=== PATIENT | female | born 1980 | race Caucasian/White ===

== ENCOUNTER 2016-08-07 20:40 | Emergency (ER) | payer OTHER ==
[2016-08-07 21:01] VITALS: BP 137/94; PULSE 78; BMI 31.7
[2016-08-07 21:10] VITALS: TEMP 98.6
--- NOTE | 2016-08-07 21:35 | PDOC ---
History of Present Illness - General Chief Complaint: Pain, Acute Stated Complaint: BREAST PAIN RIGHT SIDE Time Seen by Provider: 08/07/16 21:07 - History of Present Illness Initial Comments: 08/07/16 21:30 CHIEF COMPLAINT: right breast pain HISTORY OF PRESENT ILLNESS: 35-year-old female with history of fibroids, endometriosis, and ovarian cysts, presents to fast track with pain to right breast. Patient states that she has been having breast tenderness "for about a month" but it worsened yesterday. She denies any fever, chills, nausea, vomiting, diarrhea. She does report having a breast reduction almost twenty years ago. She is not . No recent travel or sick contacts. PAST MEDICAL HISTORY:as per HPI FAMILY HISTORY: Denies SOCIAL HISTORY:Current smoker, 2-3 cigarettes daily. Hx of alcohol use. Denies illicit drug use. SURGICAL HISTORY: breast reduction 1997, hysterectomy 2014, ovarian cystectomy 2015, knee replacement surgery ALLERGIES: No known drug allergies REVIEW OF SYSTEMS General/Constitutional: Denies fever or chills. Gastrointestinal: Denies nausea, vomiting, diarrhea or constipation. Skin and breasts: Pain to right breast. PHYSICAL EXAM General Appearance: Well-appearing, appropriately dressed. No apparent distress. HEENT: EOMI, PERRLA, normal voice. No conjunctival pallor. No photophobia, scleral icterus. Respiratory/Chest: Lungs CTAB. Cardiovascular: RRR. S1, S2. Musculoskeletal/Extremities: Normal inspection. FROM of all extremities, normal capillary refill. Pelvis Stable. No CVA tenderness. No tenderness to extremities, pedal edema, swelling, erythema or deformity. Integumentary: Mild erythema to medial aspect of R breast. No warmth, induration, discharge, or abscess appreciated. Appropriate color, dry, warm. No cyanosis, erythema, jaundice or rash Neurologic: Fully oriented, alert. Appropriate mood/affect. Motor strength 5/ 5. No appreciable EOM palsy, facial droop or sensory deficit. 08/07/16 21:43 Past History - Past Medical History Allergies/Adverse Reactions: Allergies Allergy/AdvReac Type Severity Reaction Status Date / Time aspirin Allergy Mild Hives Verified 08/07/16 20:57 Home Medications: Ambulatory Orders Cyclobenzaprine HCl [Flexeril] 10 mg PO HS 02/06/15 Omeprazole [Prilosec (RX)] 40 mg PO BID 02/06/15 Valacyclovir HCl [Valtrex -] 500 mg PO DAILY 07/11/15 Acetaminophen W/ Codeine #3 [Tylenol # 3 -] 1 tab PO Q4H #50 tablet 07/12/15 Acetaminophen [Tylenol] 650 mg PO TID PRN #30 tablet 08/07/16 Amoxicillin/Potassium Clav [Augmentin 875-125 Tablet] 1 each PO BID #20 tablet 08/07/16 Anemia: No Asthma: No Cancer: No Cardiac Disorders: No CVA: No COPD: No CHF: No Dementia: No Diabetes: No GI Disorders: Yes (ACID REFLUX,HIATAL HERNIA) Disorders: No HTN: No Hypercholesterolemia: No Liver Disease: No Seizures: No Thyroid Disease: No - Surgical History Abdominal Surgery: Yes (MINI TUMMY TUCK) Appendectomy: No Cardiac Surgery: No Cholecystectomy: No Lung Surgery: No Neurologic Surgery: No Orthopedic Surgery: Yes (ARTHROSCOPY R KNEE) - Immunization History Immunization Up to Date: Yes - Psycho/Social/Smoking Cessation Hx Suicidal Ideation: No Smoking History: Current every day smoker Have you smoked in the past 12 months: Yes Number of Cigarettes Smoked Daily: 3 Information on smoking cessation initiated: No 'Breaking Loose' booklet given: 07/12/15 Hx Alcohol Use: Yes Drug/Substance Use Hx: No Substance Use Type: Alcohol Hx Substance Use Treatment: No *Physical Exam - Vital Signs Last Vital Signs Temp Pulse Resp BP Pulse Ox 98.6 F 78 20 137/94 98 08/07/16 20:58 08/07/16 20:58 08/07/16 20:58 08/07/16 20:58 08/07/16 20:58 Medical Decision Making - Medical Decision Making 08/07/16 21:36 35 yo F with hx of fibroids, endometriosis, ovarian cysts, presents to fast track with breast pain x 1 month, worsening since yesterday. No abscess noted to breast. No discharge to nipple. -875 mg Augmentin bid Advised patient to take medication as prescribed and f/u with obstetrician gynecologist with the next 3-5 days. Advised patient of signs and symptoms for return to ER. Patient verbalized understanding and agrees to plan. *DC/Admit/Observation/Transfer Diagnosis at time of Disposition: Mastitis - Discharge Dispostion Admit: No - Prescriptions Prescriptions: Amoxicillin/Potassium Clav [Augmentin 875-125 Tablet] 1 each PO BID #20 tablet Acetaminophen [Tylenol] 650 mg PO TID PRN #30 tablet PRN Reason: Pain - Referrals Referrals: Ramesh Thomas MD [Primary Care Provider] - Linda Keene DO [Staff Physician] - - Patient Instructions Printed Discharge Instructions: DI for Mastitis Additional Instructions: Please take medications as prescribed. As discussed, please follow up with Dr. Keene within the next 3-5 days. If you experience any fever, nausea, vomiting , diarrhea, or any new or worsening symptoms, please return to the ER.
== END 2016-08-07 21:47 | disposition home or self-care (01) ==
LOC: JERFT 20:40
DX: N61.0 Mastitis without abscess (principal); K21.9 Gastro-esophageal reflux disease without esophagitis; D21.9 Benign neoplasm of connective and other soft tissue, unspecified; Z96.659 Presence of unspecified artificial knee joint; Z72.0 Tobacco use
CPT/HCPCS: 99281-25

== ENCOUNTER 2016-08-31 00:17 | Inpatient (IN) | payer OTHER ==
[2016-08-31 00:42] VITALS: BMI 29.1
[2016-08-31] MEDS ORDERED: HYDROmorphone HCL CARPU-JECT 1 MG/1 ML DISP.SYRIN IVPB ONE ×2 (00:58→01:38)
--- NOTE | 2016-08-31 00:58 | PDOC ---
History of Present Illness - History of Present Illness Initial Comments: 08/31/16 01:01 The patient is a 35 year old female with a past medical hx of fibroids, endometriosis, and ovarian cysts s/p ovarian cystectomy and hysterectomy who presents to the ED complaining of lower abdominal pain for the past two hours. The patient describes her pain as constant, sharp, and stabbing. She relates this pain the time in the past when she had an ovarian cyst rupture but notes this pain is even more severe. She reports one episode of vomiting, lightheadedness, and chills. The patient denies any chest pain, SOB, fever, diarrhea. Surgical hx: Breast reduction 1997, hysterectomy 2014, ovarian cystectomy 2016, knee replacement surgery Allergies: Aspirin <Candie Marks - Last Filed: 08/31/16 01:43> <Anabel Ibarra - Last Filed: 08/31/16 04:47> - General History Source: Patient Exam Limitations: No Limitations <Edna Hendrickson - Last Filed: 09/03/16 07:49> - General Chief Complaint: Pain, Acute Stated Complaint: ABDOMINAL PAIN Time Seen by Provider: 08/31/16 00:35 Past History <Candie Marks - Last Filed: 08/31/16 01:43> <Anabel Ibarra - Last Filed: 08/31/16 04:47> - Past Medical History Anemia: No Asthma: No Cancer: No Cardiac Disorders: No CVA: No COPD: No CHF: No Dementia: No Diabetes: No GI Disorders: Yes (ACID REFLUX,HIATAL HERNIA) Disorders: No HTN: No Hypercholesterolemia: No Liver Disease: No Seizures: No Thyroid Disease: No - Surgical History Abdominal Surgery: Yes (MINI TUMMY TUCK) Appendectomy: No Cardiac Surgery: No Cholecystectomy: No Lung Surgery: No Neurologic Surgery: No Orthopedic Surgery: Yes (ARTHROSCOPY R KNEE) - Immunization History Immunization Up to Date: Yes - Psycho/Social/Smoking Cessation Hx Suicidal Ideation: No Smoking History: Never smoked Have you smoked in the past 12 months: No Number of Cigarettes Smoked Daily: 3 Information on smoking cessation initiated: No 'Breaking Loose' booklet given: 07/12/15 Hx Alcohol Use: No Drug/Substance Use Hx: No Substance Use Type: Alcohol Hx Substance Use Treatment: No <Edna Hendrickson - Last Filed: 09/03/16 07:49> - Past Medical History Allergies/Adverse Reactions: Allergies Allergy/AdvReac Type Severity Reaction Status Date / Time aspirin Allergy Mild Hives Verified 08/31/16 00:41 Home Medications: Ambulatory Orders Cyclobenzaprine HCl [Flexeril] 10 mg PO HS 02/06/15 Omeprazole [Prilosec (RX)] 40 mg PO BID 02/06/15 Amoxicillin/Potassium Clav [Augmentin 875-125 Tablet] 1 each PO BID #20 tablet 08/07/16 Hydromorphone [Dilaudid -] 2 - 4 mg PO Q6H #42 tablet MDD 8 09/01/16 Review of Systems - Review of Systems Able to Perform ROS?: Yes Comments:: 08/31/16 01:02 GENERAL/CONSTITUTIONAL: +Chills. No: fever, weakness, loss of appetite. HEAD, EYES, EARS, NOSE AND THROAT: No: change in vision, ear pain, discharge, sore throat, throat swelling. CARDIOVASCULAR: No: chest pain, lightheadedness, palpitations, syncope RESPIRATORY: No: cough, shortness of breath, wheezing, hemoptysis, stridor. GASTROINTESTINAL: +Vomiting, abdominal pain. No: diarrhea, rectal bleeding, constipation. GENITOURINARY: No: dysuria, hematuria, frequency, urgency, flank pain. MUSCULOSKELETAL: No: back pain, neck pain, joint pain, muscle swelling or pain SKIN: No: lesions, pallor, rash or easy bruising. NEUROLOGIC: +Lightheadedness. No: headache, vertigo, paresthesias, weakness ENDOCRINE: No: unexplained weight gain or loss HEMATOLOGIC/LYMPHATIC: No: anemia, easy bleeding, swelling nodes <Candie Marks - Last Filed: 08/31/16 01:43> *Physical Exam - Vital Signs Last Vital Signs Temp Pulse Resp BP Pulse Ox 98.6 F 86 20 127/85 97 08/31/16 00:41 08/31/16 00:41 08/31/16 00:41 08/31/16 00:41 08/31/16 00:41 - Physical Exam Comments: 08/31/16 01:02 GENERAL: +Appears uncomfortable, tearful. HEAD: Normal with no signs of trauma. EYES: PERRLA, EOMI, sclera anicteric, conjunctiva clear. ENT: Ears normal, nares patent, oropharynx clear without exudates. Moist mucous membranes. NECK: Normal range of motion, supple without lymphadenopathy, JVD, or masses. LUNGS: Breath sounds equal, clear to auscultation bilaterally. No wheezes, and no crackles. HEART:Regular rate and rhythm, normal S1 and S2 without murmur, rub or gallop. ABDOMEN: +Abdominal distention, diffuse lower abdominal tenderness to palpation , voluntary guarding. Soft, normoactive bowel sounds. No rebound. EXTREMITIES: Normal range of motion, no edema. No clubbing or cyanosis. No erythema, or tenderness. NEUROLOGICAL: Cranial nerves II through XII grossly intact. Normal speech. No focal neurological deficits. MUSCULOSKELETAL: Back nontender to palpation, no CVA tenderness SKIN: Warm, Dry, normal turgor, no rashes or lesions noted. <Candie Marks - Last Filed: 08/31/16 01:43> - Vital Signs Last Vital Signs Temp Pulse Resp BP Pulse Ox 98.6 F 86 20 127/85 97 08/31/16 00:41 08/31/16 00:41 08/31/16 00:41 08/31/16 00:41 08/31/16 00:41 <Anabel Ibarra - Last Filed: 08/31/16 04:47> - Vital Signs Last Vital Signs Temp Pulse Resp BP Pulse Ox 98.6 F 86 20 127/85 97 08/31/16 00:41 08/31/16 00:41 08/31/16 00:41 08/31/16 00:41 08/31/16 00:41 <Edna Hendrickson - Last Filed: 09/03/16 07:49> ED Treatment Course - LABORATORY CBC & Chemistry Diagram: 08/31/16 01:20 08/31/16 01:20 <Candie Marks - Last Filed: 08/31/16 01:43> - LABORATORY CBC & Chemistry Diagram: 08/31/16 01:20 08/31/16 01:20 - ADDITIONAL ORDERS Additional order review: Laboratory Results 08/31/16 08/31/16 08/31/16 01:45 01:20 01:20 INR 1.03 Sodium 137 Potassium 4.2 Chloride 99 Carbon Dioxide 27 Anion Gap 11 BUN 9 D Creatinine 0.8 Creat Clearance w eGFR > 60 Random Glucose 124 H D Calcium 9.6 Total Bilirubin 0.3 AST 17 ALT 24 Alkaline Phosphatase 66 Total Protein 6.7 Albumin 4.0 Serum , Qual Negative 08/31/16 01:20 RBC 4.29 MCV 90.0 MCHC 34.1 RDW 13.7 MPV 9.3 Neutrophils % 80.4 D Lymphocytes % 13.8 D Monocytes % 4.9 Eosinophils % 0.4 D Basophils % 0.5 - Medications Given in the ED: ED Medications Discontinued Medications Generic Name Dose Route Start Last Admin Trade Name Carolyn PRN Reason Stop Dose Admin Hydromorphone HCl 0.5 mg 08/31/16 00:58 08/31/16 01:32 Dilaudid Injection - IVPB 08/31/16 00:59 0.5 mg NOW ONE Administration Hydromorphone HCl 0.5 mg 08/31/16 01:38 08/31/16 02:55 Dilaudid Injection - IVPB 08/31/16 01:39 0.5 mg NOW ONE Administration Ondansetron HCl 4 mg 08/31/16 01:38 08/31/16 02:55 Zofran Injection IVPUSH 08/31/16 01:39 4 mg ONCE ONE Administration <Anabel Ibarra - Last Filed: 08/31/16 04:47> - LABORATORY CBC & Chemistry Diagram: 09/01/16 06:50 08/31/16 01:20 <Edna Hendrickson - Last Filed: 09/03/16 07:49> Medical Decision Making - Medical Decision Making 08/31/16 02:59 Patient Name: Lori Dalton This is a preliminary report by imaging information technology specialist Exam: Endovaginal sonogram Images: 20 Clinical indication: Rule out torsion. Rule out ruptured cyst. Findings: There is a small to moderate amount of free fluid in the pelvis. The patient is status post supracervical hysterectomy. Nabothian cysts are noted in the cervical remnant. The pelvic free fluid appears complex on multiple images. The ovaries are not visualized. Impression : Status post supracervical hysterectomy. Complex multiseptated process noted in the cervical remnant possibly a nabothian cyst or hematoma. Complex fluid noted in the pelvis possibly hemorrhagic. THIS DOCUMENT HAS BEEN ELECTRONICALLY SIGNED 08/31/16 04:06 Patient Name: Lori Dalton This is a preliminary report by imaging information technology specialist Exam: Contrast-enhanced CT abdomen and pelvis Images: 480 Clinical indication : Severe abdominal pain. Findings: Subsegmental dependent atelectatic changes are noted in the lung bases. Complex perihepatic and perisplenic ascites is noted to be traced into the pelvis. A hypodensity in the right lobe liver measures approximately 2.5 cm in diameter and demonstrates peripheral nodular enhancement, likely a hemangioma. The adrenal glands are unremarkable. Subcentimeter hypodensities are noted in the right kidney. The kidneys otherwise enhance symmetrically. There is no evidence of urinary tract obstruction. The gastrointestinal tract does not appear obstructed. No thickened or dilated bowel is seen. The appendix has a normal appearance. No mesenteric infiltration. There is a heterogeneous irregular soft tissue attenuation process in the left pelvis that could represent a abnormal uterus. This process however appears to represent a hemorrhage and measures up to 12 x 9 x 6.5 cm The urinary bladder is unremarkable. No abdominal or pelvic adenopathy is seen. No lytic or blastic destructive osseous lesions are seen. Impression: Moderate amount of complex ascites seen throughout the abdomen and pelvis likely hemorrhagic. Soft tissue attenuation process in the left pelvis as above appears to represent hemorrhage and clot. Query hysterectomy? THIS DOCUMENT HAS BEEN ELECTRONICALLY SIGNED 08/31/16 04:26 I will speak to Dr. Aceves regarding the patient's pelvic hemorrhage. 08/31/16 04:[address] Keene who knows the patient. SHe is aware that there is blood in the pt's abdomen and pelvis. I read her the study results. SHe understands that the patinet has a WBC elevated count and that we have only one CBC. Repeat CBC will be sent to monitor or dropping HCT 08/31/16 04:47 <Anabel Ibarra - Last Filed: 08/31/16 04:47> - Medical Decision Making 08/31/16 00:58 35 yo F presenting to the ER with a complaint of severe abdominal pain Symptoms began suddenly Pt has a history of endometriosis (s/p hysterectomy), history of ovarian cysts ( s/p cyst removal x 2) Pt reports her pain is severe, rated >10/10, described as sharp/severe, pain initially in the lower abdomen and radiates to the right side of the abdomen No fevers or chills Pt feels nauseous No vomiting On examination: Severe lower abdominal pain and tenderness (+) voluntary guarding (+)) rebound DD: Torsion, ruptured ovarian cyst, appendicitis, SBO, colitis Will do labs, will do Ultrasound (concern for ruptured ovarian cyst) Pt is pending Labs, Imaging Bedside US performed : FAST negative US ordered CT abd and pelvis ordered Coags and Type & Screen ordered Pt signed out to Dr Ibarra at 2am, labs sent awaiting all imaging studies I, Dr. Edna Hendrickson, attest that this document has been prepared under my direction and personally reviewed by me in its entirety. I further attest, that it accurately reflects all work, treatment, procedures and medical decision -making performed by me. <Edna Hendrickson - Last Filed: 09/03/16 07:49> *DC/Admit/Observation/Transfer - Attestations Scribe Attestion: 08/31/16 01:01 Documentation prepared by Cadnie Marks, acting as front office medical assistant for Edna Hendrickson MD/DO. <Candie Marks - Last Filed: 08/31/16 01:43> - Discharge Dispostion Admit: Yes <Anabel Ibarra - Last Filed: 08/31/16 04:47> <Edna Hendrickson - Last Filed: 09/03/16 07:49> Diagnosis at time of Disposition: Intraabdominal hemorrhage - Discharge Dispostion Disposition: HOME Condition at time of disposition: Good - Prescriptions - Referrals
[2016-08-31] MEDS ORDERED: HYDROmorphone HCL CARPU-JECT 1 MG/1 ML DISP.SYRIN ONE ×2 (01:23→02:45)
[2016-08-31 01:37] LABS: BASOPHIL 0.5 % (0-2.0); EOSINOPHIL 0.4 % (0-4.5); MCH 30.7 pg (25.7-33.7); MCHC 34.1 g/dl (32.0-36.0); MEAN PLT VOLUME 9.3 fl (7.5-11.1); NEUTROPHILS 80.4 % (42.8-82.8); PLATELET COUNT 230 K/MM3 (134-434); RDW 13.7 % (11.6-15.6); WHITE BLOOD COUNT 17.1 K/mm3 (4.0-10.0)
[2016-08-31] MEDS ORDERED: ONDANSETRON 4 MG/2 ML VIAL IVPUSH ONE (01:38)
[2016-08-31 02:11] LABS: ANION GAP 11 (8-16); BILIRUBIN,TOTAL 0.3 mg/dL (0.2-1.0); CALCIUM 9.6 mg/dL (8.5-10.1); CO2 27 mmol/L (21-32); CREATININE 0.8 mg/dL (0.55-1.02); GLUCOSE,RANDOM 124 mg/dL (74-106); SGOT/AST 17 U/L (15-37); SGPT/ALT 24 U/L (12-78); TOT PROT 6.7 g/dl (6.4-8.2)
[2016-08-31 02:12] LABS: INR 1.03 (0.82-1.09); PROTHROMBIN TIME (PATIENT) 11.3 SEC (9.98-11.88)
[2016-08-31 02:12] LABS: ALK PHOS 66 U/L (45-117)
[2016-08-31] MEDS ORDERED: ONDANSETRON 4 MG/2 ML VIAL ONE (02:52)
[2016-08-31] MEDS ORDERED: ACETAMINOPHEN 1000 MG/100 ML VIAL (NON FORMULARY) IVPB ONE (03:04)
[2016-08-31] MEDS ORDERED: ACETAMINOPHEN INJECTION 100 ML IVPB ONE ×2 (03:54→12:38)
[2016-08-31 04:53] LABS: BASOPHIL 0.5 % (0-2.0); EOSINOPHIL 0.2 % (0-4.5); MCH 30.1 pg (25.7-33.7); MCHC 33.6 g/dl (32.0-36.0); MEAN CELL VOLUME 89.5 fl (80-96); MEAN PLT VOLUME 9.1 fl (7.5-11.1); NEUTROPHILS 77.8 % (42.8-82.8); PLATELET COUNT 240 K/MM3 (134-434); RDW 13.6 % (11.6-15.6); WHITE BLOOD COUNT 14.2 K/mm3 (4.0-10.0)
[2016-08-31] MEDS ORDERED: morphine CARPU-JECT 2 MG/1 ML DISP.SYRIN IVPUSH ONE (04:55)
[2016-08-31] MEDS ORDERED: SODIUM CHLORIDE 1,000 ML IV SCH (05:00)
[2016-08-31] MEDS ORDERED: morphine CARPU-JECT 2 MG/1 ML DISP.SYRIN ONE (05:09)
[2016-08-31] MEDS: HYDROmorphone HCL CARPU-JECT 1 MG/1 ML DISP.SYRIN IVPB PRN ×2 (05:42→10:12)
[2016-08-31] MEDS ORDERED: ACETAMINOPHEN 1000 MG/100 ML VIAL (NON FORMULARY) IVPB SCH ×3 (09:00→21:15)
[2016-08-31 09:15] LABS: PH,URINE 8.5 (5.0-8.0); URINE APPEARANCE CLEAR; URINE BILIRUBIN NEGATIVE (NEGATIVE); URINE BLOOD NEGATIVE (NEGATIVE); URINE COLOR LT. YELLOW; URINE GLUCOSE (UA) NEGATIVE (NEGATIVE); URINE KETONE NEGATIVE (NEGATIVE); URINE LEUK ESTERASE NEGATIVE (NEGATIVE); URINE NITRITE NEGATIVE (NEGATIVE); URINE PROTEIN NEGATIVE (NEGATIVE); URINE UROBILINOGEN 0.2 E.U/dl E.U./dl (0.2-1.0)
[2016-08-31 09:40] LABS: BASOPHIL 0.3 % (0-2.0); EOSINOPHIL 0.3 % (0-4.5); MCH 30.8 pg (25.7-33.7); MCHC 34.5 g/dl (32.0-36.0); MEAN CELL VOLUME 89.5 fl (80-96); MEAN PLT VOLUME 9.1 fl (7.5-11.1); NEUTROPHILS 73.3 % (42.8-82.8); PLATELET COUNT 222 K/MM3 (134-434); RDW 13.3 % (11.6-15.6); WHITE BLOOD COUNT 13.7 K/mm3 (4.0-10.0)
--- NOTE | 2016-08-31 11:16 | HP ---
Admitting History and Physical - Admission History of Present Illness: Patient is a 35 y/o female who presented to the ER last night with complaints of abdominal pain, on episode of nause and some light headedness. After evaluation was found to have hemoperitoneum. The patient has a history of ruptured ovarian cysts and states the pain she had last night feels similar, but that it is much more severe. The patient has a history of a total laparoscopic hysterectomy and bilateral salpingectomy, as well as a history of an ovarian cystectomy. The patient also has a history of an abdominoplasty and c section as well as back and knee surgery. The patient feels somewhat light headed and now complains of pelvic pressure and the urge to "push" as if she is in labor. History Source: Patient, Medical Record Limitations to Obtaining History: No Limitations - Past Medical History Cardiovascular: No: Deep Vein Thrombosis, [place] Pulmonary: Yes: Asthma Gastrointestinal: Yes: GERD. No: Cancer, Pancreatitis Reproductive: Yes: Other (history of TLH and ovarian cysts). No: Ectopic , PID, Postmenopausal ...LMP: 02/02/15 ...LMP Comment: Hx of Total Laparoscopic Hysterectomy ...: No Heme/Onc: No: Anemia Infectious Disease: No: HIV, MRSA Psych: No: Bipolar Rheumatology: Yes: Fibromyalgia Endocrine: No: Diabetes Mellitus, Hyperthyroidism - Past Surgical History Past Surgical History: Yes: Breast Biopsy, , Hysterectomy, Tubal Ligation (salpingectomy) Additional Past Surgical History: total laparoscopic hysterectomy with bilateral salpingectomy, abdominoplasty, laparoscopic ovarian cystectomy - Smoking History Smoking history: Current every day smoker Have you smoked in the past 12 months: Yes Aproximately how many cigarettes per day: 3 - Alcohol/Substance Use Hx Alcohol Use: Yes (2-3 drinks weekly) History of Substance Use: reports: Prescription (is prescribed tylenol with codeine for back pain) - Social History Usual Living Arrangement: Yes: With Significant Other ADL: Independent History of Recent Travel: No Home Medications - Allergies Allergies/Adverse Reactions: Allergies Allergy/AdvReac Type Severity Reaction Status Date / Time aspirin Allergy Mild Hives Verified 08/31/16 00:41 - Home Medications Home Medications: Ambulatory Orders Cyclobenzaprine HCl [Flexeril] 10 mg PO HS 02/06/15 Omeprazole [Prilosec (RX)] 40 mg PO BID 02/06/15 Amoxicillin/Potassium Clav [Augmentin 875-125 Tablet] 1 each PO BID #20 tablet 08/07/16 Review of Systems - Review of Systems Constitutional: reports: No Symptoms Eyes: reports: No Symptoms HENT: reports: No Symptoms Neck: reports: No Symptoms Cardiovascular: reports: No Symptoms Respiratory: reports: No Symptoms Gastrointestinal: reports: Abdominal Pain, Bloating, Vomiting (one episode of vomiting yesterday). denies: Constipation, Diarrhea Genitourinary: reports: Pain, Other (pelvic pressure). denies: Hematuria, Menses, Vaginal Bleeding Breasts: reports: No Symptoms Reported, Other (recent breast biopsy on 08/28 - right breast) Neurological: reports: Syncope (near syncope). denies: Change in Speech, Confusion, Dizziness Hematology/Lymphatic: reports: No Symptoms Psychiatric: reports: No Symptoms Physical Examination Vital Signs: Vital Signs Temperature 98.4 F 08/31/16 08:47 Pulse Rate 79 08/31/16 08:47 Respiratory Rate 18 08/31/16 08:47 Blood Pressure 147/82 08/31/16 08:47 O2 Sat by Pulse Oximetry (%) 100 08/31/16 05:41 Constitutional: Yes: Well Nourished, Anxious, Moderate Distress. No: Pallor Neck: Yes: Supple Cardiovascular: Yes: Regular Rate and Rhythm Gastrointestinal: Yes: Soft, Distention, Hypoactive Bowel Sounds, Tenderness. No: Vomiting Breast(s): Yes: WNL Musculoskeletal: Yes: WNL Extremities: Yes: WNL Neurological: Yes: Alert, Oriented Psychiatric: Yes: Alert, Oriented Labs: CBC, BMP 08/31/16 09:00 Problem List - Problems (1) Hemoperitoneum Code(s): K66.1 - HEMOPERITONEUM (2) Intraabdominal hemorrhage Code(s): R58 - HEMORRHAGE, NOT ELSEWHERE CLASSIFIED Assessment/Plan Patient is a 35 yo female with abdominal pain and intrapelvic/intra abdominal bleeding likely 2/2 ruptured ovarian cyst. Afebrile. VSS - not tachycardic or hypotensive. Hgb 13.2 at 1am, at 9am was 12.1, overall stable but slowly dropping. Discussed plan of care with patient and family. Plan for diagnostic laparoscopy, evacuation of hemoperitoneum, likely right oophorectomy. The patient was explained the plan of care - risks/benefits/alternatives discussed. Consent for procedure was signed with nurse present to witness consent. Pt has been NPO. Anesthesia and nursing team aware.
[2016-08-31] MEDS ORDERED: ROCURONIUM BROMIDE 50 MG/5 ML VIAL ONE (12:22)
[2016-08-31] MEDS ORDERED: MIDAZOLAM HCL 2 MG/2 ML SINGLE DOSE VIAL ONE (12:23)
[2016-08-31] MEDS ORDERED: LIDOCAINE HCL 2% (20ML MULTI-DOSE VIAL) NR ONE (12:25)
[2016-08-31] MEDS ORDERED: SCOPOLAMINE HYDROBROMIDE 1 PATCH PATCH.TD72 ONE (12:25)
[2016-08-31] MEDS ORDERED: ALBUTEROL SO4 6.7 GM HFA INHALER IH PRN ×2 (12:29→15:20)
[2016-08-31] MEDS ORDERED: ceFAZolin SODIUM 1 GM VIAL ONE (12:35)
[2016-08-31] MEDS ORDERED: PANTOPRAZOLE 40 MG TABLET (FP) PO SCH (12:45)
[2016-08-31] MEDS ORDERED: ceFAZolin SODIUM 1 GM VIAL IVPB ONE (12:51)
[2016-08-31] MEDS ORDERED: HYDROmorphone HCL/PF 1 MG/ML VIAL (FOR PYXIS CHARGING ONLY) ONE (12:57)
[2016-08-31] MEDS ORDERED: NEOSTIGMINE METHYLSULFATE 0.5 MG/ML - 10 ML MDV ONE (13:12)
[2016-08-31] MEDS ORDERED: GLYCOPYRROLATE 0.2 MG/1 ML VIAL ONE (13:13)
[2016-08-31] MEDS ORDERED: SUCCINYLCHOLINE CHLORIDE 200 MG/10 ML VIAL ONE (13:32)
[2016-08-31] MEDS ORDERED: BUPIVACAINE HCL/PF 0.25% (2.5MG/ML) 10 ML VIAL STI ONE (13:47)
[2016-08-31] MEDS ORDERED: IBUPROFEN 800 MG/8 ML IJ IVPB PRN ×2 (14:25→15:20)
--- NOTE | 2016-08-31 14:25 | OP ---
Operative Note - Note: Operative Date: 08/31/16 Pre-Operative Diagnosis: pelvic pain, hemoperitoneum, suspected rupture ovarian cyst Operation: diagnostic laparoscopy, evacuation of hemoperitoneum, right oophorectomy Findings: Large ruptured right sided ovarian hemorrhagic cyst, right ovarian torsion ( twice), hemoperitoneum (approx 500cc). Normal left ovary. Absence of uterus and bilateral fallopian tubes (had prior TLH and b/l salpingectomy in 2014). Omental adhesions to anterior abdominal wall. Otherwise normal intra abdominal anatomy. Post-Operative Diagnosis: Same as Pre-op (right ovarian hemorrhagic cyst, right ovarian torsion, hemoperitoneum) Surgeon: Linda Keene Mica Machine Operator: Tenisha Montez Anesthesiologist/MANAGER MARKET RESEARCH: Jaden Perla Anesthesia: General Specimens Removed: right ovary, reminent of right fallopian tube Estimated Blood Loss (mls): 600 Operative Report Dictated: Yes
[2016-08-31] MEDS ORDERED: ONDANSETRON 4 MG/2 ML VIAL IVPUSH PRN ×2 (14:26→15:20)
[2016-08-31] MEDS ORDERED: HYDROmorphone HCL 2 MG TABLET PO PRN ×2 (14:26→22:00)
[2016-08-31] MEDS ORDERED: PROMETHAZINE HCL 25 MG/1 ML VIAL IVPUSH PRN (14:26)
[2016-08-31] MEDS ORDERED: LACTATED RINGERS SOLUTION 1,000 ML IV SCH ×2 (14:30→15:20)
[2016-08-31] MEDS ORDERED: ACETAMINOPHEN 325 MG TABLET (FP) PO PRN ×2 (14:39→15:20)
[2016-08-31] MEDS ORDERED: HYDROmorphone HCL CARPU-JECT 1 MG/1 ML DISP.SYRIN IVPB PRN (15:20)
[2016-08-31 15:22] LABS: BASOPHIL 0.2 % (0-2.0); EOSINOPHIL 0.1 % (0-4.5); MCH 30.3 pg (25.7-33.7); MCHC 33.7 g/dl (32.0-36.0); MEAN CELL VOLUME 89.7 fl (80-96); MEAN PLT VOLUME 9.1 fl (7.5-11.1); NEUTROPHILS 89.8 % (42.8-82.8); PLATELET COUNT 172 K/MM3 (134-434); RDW 13.3 % (11.6-15.6); WHITE BLOOD COUNT 13.4 K/mm3 (4.0-10.0)
[2016-08-31] MEDS: HYDROmorphone HCL 2 MG TABLET PO PRN (17:53)
[2016-08-31 20:07] LABS: BASOPHIL 0.3 % (0-2.0); MCH 30.4 pg (25.7-33.7); MCHC 33.4 g/dl (32.0-36.0); MEAN CELL VOLUME 90.9 fl (80-96); MEAN PLT VOLUME 9.6 fl (7.5-11.1); NEUTROPHILS 88.4 % (42.8-82.8); PLATELET COUNT 192 K/MM3 (134-434); RDW 13.3 % (11.6-15.6); WHITE BLOOD COUNT 10.3 K/mm3 (4.0-10.0)
[2016-08-31] MEDS: PANTOPRAZOLE 40 MG TABLET (FP) PO SCH (21:21)
--- NOTE | 2016-08-31 22:42 | OP ---
DATE OF OPERATION: 08/31/2016 PREOPERATIVE DIAGNOSIS: Suspected ruptured ovarian cyst, hemoperitoneum. POSTOPERATIVE DIAGNOSIS: Confirmed ruptured hemorrhagic ovarian cyst, hemoperitoneum. Right ovarian torsion. PROCEDURE: Laparoscopic right oophorectomy and evacuation of hemoperitoneum. FINDINGS: Included large right ovarian hemorrhagic cyst and ovarian torsion as well as a large amount of hemoperitoneum. SURGEON: Linda James M.D. ESCORT CAR DRIVER: Tenisha Montez M.D. ANESTHESIA: General. ANESTHESIOLOGIST: Jaden Perla M.D. COUNTS: Sponge, needle, and instrument count correct at the end of the case. SPECIMEN: Included right ovary sent to pathology for permanent evaluation. DISPOSITION: Stable to PACU. BRIEF HISTORY AND PROCEDURE: Patient is a 35-year-old female who was admitted to the hospital on the morning of August 31, 2016, with complaints of abdominal pain. Upon imaging studies, the patient was noted to have intrapelvic hemorrhage and there was concern for right ruptured ovarian cyst. While CBC were trended and patient's hemoglobin and hematocrit were stable, the patient was in significant pain, at which point it was decided to take the patient back to the operating room for diagnostic laparoscopy. The patient consented for the procedure. She was then taken back to the operating room where she was given general anesthesia by Dr. Jaden Perla without difficulty. She was placed in the dorsal lithotomy position. A dejesus catheter was placed under sterile conditions. She was then prepped and draped in the usual sterile fashion. A hard timeout was performed. A 5-mm skin incision was created infraumbilically, and Veress needle was placed intraabdominally. The abdomen was insufflated with CO2 gas. Next a 5-mm trocar was placed in the umbilical port and the camera was inserted. Upon entry into the abdomen, a large amount of intrapelvic blood and clot was noted, approximately 500 mL was appreciated. At this time also omental adhesions to the anterior abdominal wall were appreciated. Two bilateral lower quadrants ports were then inserted, 5 mm in the left lower quadrant and an 11 mm in the right lower quadrant; this was done under direct visualization. First the hemoperitoneum was attempted to be evacuated with suction at which point a large right ovary with a hemorrhagic ruptured cyst was noted, and the ovary appeared to be twisted on the infundibulopelvic ligament approximately 2 times. Next, the omental adhesions were dissected off the Ligasure device from the anterior abdominal wall. This was done without difficulty. The ovary was then de-torsed and elevated away from the pelvic sidewall. After identifying the ureter transperitoneally, the infundibulopelvic ligament was isolated, ligated, and cut with a Ligasure device on several passes until the ovary was detached from the pelvic side wall. Next an Endocatch bag was placed in the 11 mm trocar site and the ovary was removed from the abdominal cavity. Suction was then completed to evacuate the remaining hemoperitoneum. Inspection of the remainder of the abdomen revealed no other intraabdominal pathology or any other sources of bleeding at this time. Next the 11-mm trocar site was closed under direct visualization using the Ernesto Brandon device using 0 Vicryl suture. Attention was then turned again to the pelvis, where bilateral ureters were noting to be peristalsing normally and with a normal caliber, and the surgical site was noted to be hemostatic. Trocars were removed under direct visualization. Abdomen was desufflated. Trocars were all removed, and then skin was reapproximated using 4-0 Biosyn suture and then Dermabond. Marcaine was injected subdermally and band-aids were applied as needed. The patient was awoken from anesthesia, Dejesus catheter was removed, and she was recovering in stable condition in PACU after the surgery. Sponge needle and instrument counts were reported as correct at the end of the case. LINDA JAMES DO CH/[id number] MTDD
[2016-09-01] MEDS: HYDROmorphone HCL 2 MG TABLET PO PRN ×2 (01:57→07:25)
--- NOTE | 2016-09-01 07:05 | PN ---
Progress Note (short form) - Note Progress Note: 35 yo status post Laparoscopic Oophorectomy, seen and evaluated. She c/o incision pain. PE : Chest : CTA, no rales ABD : Soft, no distention, + incision pain Ext : FROM, no calf tenderness A/P : Post op Lap Oophorectomy Stable Analgesia PRN pain D/C home
[2016-09-01 08:01] LABS: BASOPHIL 0.2 % (0-2.0); EOSINOPHIL 0.3 % (0-4.5); MCH 30.5 pg (25.7-33.7); MCHC 33.1 g/dl (32.0-36.0); MEAN CELL VOLUME 91.9 fl (80-96); MEAN PLT VOLUME 9.1 fl (7.5-11.1); NEUTROPHILS 70.7 % (42.8-82.8); PLATELET COUNT 196 K/MM3 (134-434); RDW 13.7 % (11.6-15.6); WHITE BLOOD COUNT 11.4 K/mm3 (4.0-10.0)
--- NOTE | 2016-09-01 08:04 | PN ---
Progress Note (short form) - Note Progress Note: Post op day#1.S/P Laproscopic R salpingectomy for an ectopic under GA uneventful.Patient stable.No any anesthesia related problem.Patient DC from the anesthesia care.
--- NOTE | 2016-09-01 09:20 | DS ---
Physical Examination Vital Signs: Vital Signs Temperature 98.5 F 09/01/16 02:00 Pulse Rate 69 09/01/16 02:00 Respiratory Rate 18 09/01/16 02:00 Blood Pressure 110/57 09/01/16 02:00 O2 Sat by Pulse Oximetry (%) 97 08/31/16 15:30 Constitutional: Yes: Well Nourished, No Distress, Calm Eyes: Yes: Conjunctiva Clear, EOM Intact HENT: Yes: Atraumatic, Normocephalic Neck: Yes: Supple, Trachea Midline Cardiovascular: Yes: Regular Rate and Rhythm Respiratory: Yes: Regular, CTA Bilaterally Gastrointestinal: Yes: Normal Bowel Sounds, Soft, Tenderness (at incision site) . 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 Upon imaging studies, it appeared that the patient had a ruptured hemorrhagic ovarian cyst. The patient was admitted for pain control, and although her hemoglobin was trended and stable, the patient was in significant pain at which point it was decided to undergo a diagnostic laparoscopy to evaluate the reason for intrapelvic bleeding. Upon entry into the abdomen, the patient was noted to have approximately 500cc of hemoperitoneum and a large right ovarian hemorrhagic cyst and ovarian torsion. The patient then underwent an uncomplicated right oophorectomy and evacuation of hemoperitoneum. The patient was kept overnight and discharged home in stable condition on post op day 1. Condition: Guarded - Instructions Referrals: Bryce Pearl [Primary Care Provider] - - Home Medications Comprehensive Discharge Medication List: Ambulatory Orders Cyclobenzaprine HCl [Flexeril] 10 mg PO HS 02/06/15 Omeprazole [Prilosec (RX)] 40 mg PO BID 02/06/15 Amoxicillin/Potassium Clav [Augmentin 875-125 Tablet] 1 each PO BID #20 tablet 08/07/16
[2016-09-01] MEDS: PANTOPRAZOLE 40 MG TABLET (FP) PO SCH (10:02)
[2016-09-01 10:58] VITALS: BP 123/73; PULSE 63; TEMP 98.1
--- NOTE | 2016-09-02 14:37 | PATH ---
Surgical Pathology Report Patient Name: VENITA BURKETT Med. Rec. 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 Specimen(s) Received RT OVARY& REMNANT RT. FALLOPIAN TUBE Clinical History Hemoperitoneum Final Diagnosis RIGHT OVARY, OOPHERECTOMY: BENIGN OVARIAN TISSUE WITH EXTENSIVE VASCULAR CONGESTION AND HEMORRHAGE CONSISTENT WITH TORSION. SEROSAL FIBROVASCULAR ADHESIONS ARE PRESENT. Comment: No definite fallopian tube tissue is identified in the current specimen. See prior specimen [id number]. Electronically Signed Ridge Chacon M.D. Gross Description Received in formalin labeled "right ovary and remnant right fallopian tube," is a 6.5 x 4.3 x 2.5 cm garcia brown, hemorrhagic portion of partially encapsulated tissue. Sectioning reveals red-brown blood clot as well as foci of possible soft tissue. No definite fallopian tube is identified. Process Steward sections are submitted in 7 cassettes. DL/09/01/2016 saudi/09/01/2016
== END 2016-09-01 10:50 | disposition home or self-care (01) | DRG 513 ==
LOC: JER 00:17 → JERBED 04:33 → J3W 05:45
PROVIDERS: ADMIT Obstetrics & Gynecology; ATTEND Obstetrics & Gynecology
PROC: 0UB04ZZ Excision of Right Ovary, Percutaneous Endoscopic Approach (ICD-10-PCS; principal; 2016-08-31 12:00)
DX: N83.201 Unspecified ovarian cyst, right side (principal); K66.1 Hemoperitoneum; F17.210 Nicotine dependence, cigarettes, uncomplicated
CPT/HCPCS: 36415; 74177-TC; 76830-TC; 80053; 81003; 84703; 85025; 85384; 85610; 85730; 86850; 86900; 86901; 87086; 87186; 88305-TC; 94010; 94760; 99283-25; 99284-25; Q9967

== ENCOUNTER 2016-09-03 15:27 | Emergency (ER) | payer OTHER ==
--- NOTE | 2016-09-03 16:15 | PDOC ---
History of Present Illness - General History Source: Patient - History of Present Illness Timing/Duration: other Severity: severe Associated Symptoms: denies: chest pain, fever/chills, nausea/vomiting, shortness of breath, syncope <Josefina Quintanilla - Last Filed: 09/03/16 18:11> <Jan Hernandez - Last Filed: 09/03/16 21:23> - General Chief Complaint: Lightheaded Stated Complaint: DIZZINESS Time Seen by Provider: 09/03/16 16:06 Past History - Past Medical History Anemia: No Asthma: No Cancer: No Cardiac Disorders: No CVA: No COPD: No CHF: No Dementia: No Diabetes: No GI Disorders: Yes (ACID REFLUX,HIATAL HERNIA) Disorders: No HTN: No Hypercholesterolemia: No Liver Disease: No Seizures: No Thyroid Disease: No - Surgical History Abdominal Surgery: Yes (MINI TUMMY TUCK) Appendectomy: No Cardiac Surgery: No Cholecystectomy: No Lung Surgery: No Neurologic Surgery: No Orthopedic Surgery: Yes (ARTHROSCOPY R KNEE) - Immunization History Immunization Up to Date: Yes - Psycho/Social/Smoking Cessation Hx Suicidal Ideation: No Smoking History: Never smoked Have you smoked in the past 12 months: No Number of Cigarettes Smoked Daily: 3 Cigars Per Day: 0 'Breaking Loose' booklet given: 07/12/15 Hx Alcohol Use: No Drug/Substance Use Hx: No Substance Use Type: Alcohol Hx Substance Use Treatment: No <Josefina Quintanilla - Last Filed: 09/03/16 18:11> <Jan Hernandez - Last Filed: 09/03/16 21:23> - Past Medical History Allergies/Adverse Reactions: Allergies Allergy/AdvReac Type Severity Reaction Status Date / Time aspirin Allergy Mild Hives Verified 08/31/16 00:41 Home Medications: Ambulatory Orders Omeprazole [Prilosec (RX)] 40 mg PO BID 02/06/15 Amoxicillin/Potassium Clav [Augmentin 875-125 Tablet] 1 each PO BID #20 tablet 08/07/16 Hydromorphone [Dilaudid -] 2 - 4 mg PO Q6H #42 tablet MDD 8 09/01/16 Diclofenac Sodium 75 mg PO DAILY 09/03/16 Review of Systems - Review of Systems Constitutional: No: Chills, Fever Respiratory: No: Shortness of Breath Cardiac (ROS): No: Chest Pain, Palpitations ABD/GI: Yes: Abdominal cramping. No: Nausea, Vomiting : No: Dysuria, Flank Pain, Hematuria <TaiwaneseJosefina - Last Filed: 09/03/16 18:11> *Physical Exam - Physical Exam General Appearance: Yes: Appropriately Dressed, Mild Distress HEENT: positive: Normal Voice Neck: positive: Supple Respiratory/Chest: negative: Respiratory Distress Gastrointestinal/Abdominal: positive: Normal Bowel Sounds, Tender (diffusely to lower abd, well healing incisions, +hematoma to RLQ), Soft. negative: Distended , Guarding, Rebound Musculoskeletal: negative: CVA Tenderness Integumentary: positive: Dry, Warm Neurologic: positive: Fully Oriented, Alert, Normal Mood/Affect <TaiwaneseJosefina - Last Filed: 09/03/16 18:11> - Vital Signs Last Vital Signs Temp Pulse Resp BP Pulse Ox 98.7 F 89 18 118/78 99 09/03/16 19:42 09/03/16 19:42 09/03/16 19:42 09/03/16 19:42 09/03/16 19:42 <Jan Hernandez - Last Filed: 09/03/16 21:23> ED Treatment Course - LABORATORY CBC & Chemistry Diagram: 09/03/16 17:00 09/03/16 17:00 <TaiwaneseJosefina - Last Filed: 09/03/16 18:11> - LABORATORY CBC & Chemistry Diagram: 09/03/16 17:00 09/03/16 17:00 - ADDITIONAL ORDERS Additional order review: Laboratory Results 09/03/16 09/03/16 09/03/16 19:25 17:00 17:00 INR 0.90 Sodium Potassium Chloride Carbon Dioxide Anion Gap BUN Creatinine Creat Clearance w eGFR Random Glucose Calcium Total Bilirubin AST ALT Alkaline Phosphatase Total Protein Albumin Urine Color Straw Urine Appearance Clear Urine pH 6.0 D Ur Specific [place] 1.009 Urine Protein Negative Urine Glucose (UA) Negative Urine Ketones Negative Urine Blood Negative Urine Nitrite Negative Urine Bilirubin Negative Urine Urobilinogen Negative Ur Leukocyte Esterase Negative Blood Type O POSITIVE Antibody Screen Negative 09/03/16 17:00 INR Sodium 139 Potassium 4.1 Chloride 101 Carbon Dioxide 27 Anion Gap 11 BUN 12 D Creatinine 0.7 Creat Clearance w eGFR > 60 Random Glucose 99 D Calcium 9.1 Total Bilirubin 0.3 AST 28 D ALT 34 D Alkaline Phosphatase 60 Total Protein 6.3 L Albumin 3.4 Urine Color Urine Appearance Urine pH Ur Specific [place] Urine Protein Urine Glucose (UA) Urine Ketones Urine Blood Urine Nitrite Urine Bilirubin Urine Urobilinogen Ur Leukocyte Esterase Blood Type Antibody Screen 09/03/16 17:00 RBC 3.06 L MCV 91.8 MCHC 32.7 RDW 13.5 MPV 9.0 Neutrophils % 60.4 Lymphocytes % 28.6 D Monocytes % 7.3 Eosinophils % 2.9 D Basophils % 0.8 D - Medications Given in the ED: ED Medications Discontinued Medications Generic Name Dose Route Start Last Admin Trade Name Freq PRN Reason Stop Dose Admin Morphine Sulfate 4 mg 09/03/16 16:25 09/03/16 16:55 Morphine Injection - IVPUSH 09/03/16 16:26 4 mg ONCE ONE Administration <Jan Hernandez D - Last Filed: 09/03/16 21:23> Medical Decision Making - Medical Decision Making 09/03/16 16:11 35-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 Taking dilaudid w/ no relief. Denies CP/sob/palpitations. No vag bleed, n/v/f/c. See exam Worsening pelvic pain s/p recent evacuation/R oophorectomy for torsion and ruptured hemorrhagic cyst (had ~500cc or hemoperitoneum) Stable in ED w/ sig ttp to lower abd diffusely w/ no sig distension and ell healing surgical incisions Unable to luis pelvic exam at this time -pain control -labs -CT r/o recurrent hemorrhage/post-op complications -d/w NUTRITION TEACHER 09/03/16 16:38 Case d/w Dr James who agrees w/ rpt CT today. Would like to be contacted w/ results 09/03/16 17:12 09/03/16 18:11 <TaiwaneseJosefina - Last Filed: 09/03/16 18:11> - Medical Decision Making 09/03/16 21:04 Discussed results with patient. Patient states she feels fine, but believes she may have been doing to much activity and not rest s/p recent surgery. Call was placed to Dr. James (NUTRITION TEACHER/OB). 09/03/16 21:20 Patient approached nursing station stating that she spoke with Dr. James who stated, "If your Ct-Scan has no internal bleeding, you can follow up in office tomorrow." Patient requesting to be d/c'd to home at this time. <Jan Hernandez D - Last Filed: 09/03/16 21:23> *DC/Admit/Observation/Transfer <TaiwaneseJosefina - Last Filed: 09/03/16 18:11> - Discharge Dispostion Admit: No <Jan Hernandez - Last Filed: 09/03/16 21:23> Diagnosis at time of Disposition: Lightheadedness Abdominal pain Qualifiers: Abdominal location: generalized Qualified Code(s): R10.84 - Generalized abdominal pain - Discharge Dispostion Disposition: HOME Condition at time of disposition: Improved - Patient Instructions Additional Instructions: FOLLOW UP WITH DR. JAMES IN OFFICE TOMORROW DISCUSSED. Print Language: URDU
[2016-09-03] MEDS ORDERED: morphine CARPU-JECT 4 MG/1 ML DISP.SYRIN IVPUSH ONE (16:25)
[2016-09-03] MEDS ORDERED: morphine CARPU-JECT 4 MG/1 ML DISP.SYRIN ONE (16:46)
[2016-09-03 17:31] LABS: BASOPHIL 0.8 % (0-2.0); EOSINOPHIL 2.9 % (0-4.5); MCHC 32.7 g/dl (32.0-36.0); MEAN CELL VOLUME 91.8 fl (80-96); NEUTROPHILS 60.4 % (42.8-82.8); PLATELET COUNT 227 K/MM3 (134-434); RDW 13.5 % (11.6-15.6)
[2016-09-03 17:47] LABS: ALBUMIN 3.4 g/dl (3.4-5.0); ANION GAP 11 (8-16); BILIRUBIN,TOTAL 0.3 mg/dL (0.2-1.0); CALCIUM 9.1 mg/dL (8.5-10.1); CO2 27 mmol/L (21-32); COCKROFT - GAULT 0; CREATININE 0.7 mg/dL (0.55-1.02); GLUCOSE,RANDOM 99 mg/dL (74-106); SGOT/AST 28 U/L (15-37); SGPT/ALT 34 U/L (12-78); TOT PROT 6.3 g/dl (6.4-8.2)
[2016-09-03 17:48] LABS: ALK PHOS 60 U/L (45-117)
[2016-09-03 17:51] LABS: INR 0.9 (0.82-1.09); PROTHROMBIN TIME (PATIENT) 9.9 SEC (9.98-11.88)
[2016-09-03 18:00] VITALS: BMI 31.6
[2016-09-03 19:35] LABS: URINE APPEARANCE CLEAR; URINE BILIRUBIN NEGATIVE (NEGATIVE); URINE BLOOD NEGATIVE (NEGATIVE); URINE COLOR STRAW; URINE GLUCOSE (UA) NEGATIVE (NEGATIVE); URINE KETONE NEGATIVE (NEGATIVE); URINE LEUK ESTERASE NEGATIVE (NEGATIVE); URINE NITRITE NEGATIVE (NEGATIVE); URINE PROTEIN NEGATIVE (NEGATIVE); URINE UROBILINOGEN NEGATIVE E.U./dl (0.2-1.0)
[2016-09-03 19:43] VITALS: BP 118/78; PULSE 89; TEMP 98.7
--- NOTE | 2016-09-04 13:27 | EKG ---
Test Reason : Blood Pressure : / mmHG Vent. Rate : 075 BPM Atrial Rate : 075 BPM P-R Int : 166 ms QRS Dur : 094 ms QT Int : 390 ms P-R-T Axes : 058 066 053 degrees QTc Int : 435 ms NORMAL SINUS RHYTHM NORMAL ECG WHEN COMPARED WITH ECG OF 06-FEB-2015 08:47, NO SIGNIFICANT CHANGE WAS FOUND Confirmed by SILVA PARNELL MD ([id number]) on 09/04/2016 1:27:14 PM Referred By: Confirmed By:SILVA PARNELL MD
== END 2016-09-03 21:26 | disposition home or self-care (01) ==
LOC: JER 15:27
PROC: 3E033NZ Introduction of Analgesics, Hypnotics, Sedatives into Peripheral Vein, Percutaneous Approach (ICD-10-PCS; principal; 2016-09-03)
DX: R42 Dizziness and giddiness (principal); R10.84 Generalized abdominal pain; Z98.890 Other specified postprocedural states
CPT/HCPCS: 36415; 74177-TC; 80053; 81003; 85025; 85610; 86850; 86900; 86901; 93005; 93010; 99283-25; Q9967

== ENCOUNTER 2016-09-08 20:02 | Emergency (ER) | payer OTHER ==
[2016-09-08 21:00] VITALS: BP 131/92; PULSE 70; TEMP 98.3; BMI 29.1
[2016-09-08] MEDS ORDERED: SODIUM CHLORIDE 500 ML IV STA (21:17)
--- NOTE | 2016-09-08 21:24 | PDOC ---
History of Present Illness - General Chief Complaint: Pain Stated Complaint: ABDOMINAL PAIN Time Seen by Provider: 09/08/16 20:37 History Source: Patient - History of Present Illness Initial Comments: 09/08/16 21:16 35 year old female s/p oopherectomy on 08/31 c/o chest pain, incision site swelling and pain which developed while having an argument with at home prior to arrival. patient denies bleeding/ PUS at the site. slight tenderness to touch. . denies fever, NVD, abdominal pain, urinary symptoms. Surgeon Dr. Keene. Past History - Past Medical History Allergies/Adverse Reactions: Allergies Allergy/AdvReac Type Severity Reaction Status Date / Time aspirin Allergy Mild Hives Verified 08/31/16 00:41 Home Medications: Ambulatory Orders Amoxicillin/Potassium Clav [Augmentin 875-125 Tablet] 1 each PO BID #20 tablet 08/07/16 Hydromorphone [Dilaudid -] 2 - 4 mg PO Q6H #42 tablet MDD 8 09/01/16 Cephalexin [Keflex] 500 mg PO Q12H #14 capsule 09/13/16 Anemia: No Asthma: No Cancer: No Cardiac Disorders: No CVA: No COPD: No CHF: No Dementia: No Diabetes: No GI Disorders: Yes (ACID REFLUX,HIATAL HERNIA) Disorders: No HTN: No Hypercholesterolemia: No Liver Disease: No Psychiatric Problems: Yes (PTSD, anxiety) Seizures: No Thyroid Disease: No - Surgical History Abdominal Surgery: Yes (MINI TUMMY TUCK) Appendectomy: No Cardiac Surgery: No Cholecystectomy: No Lung Surgery: No Neurologic Surgery: No Orthopedic Surgery: Yes (ARTHROSCOPY R KNEE) - Immunization History Immunization Up to Date: Yes - Psycho/Social/Smoking Cessation Hx Anxiety: No Suicidal Ideation: No Smoking History: Unknown if ever smoked Have you smoked in the past 12 months: No Number of Cigarettes Smoked Daily: 3 Cigars Per Day: 0 'Breaking Loose' booklet given: 07/12/15 Hx Alcohol Use: No Drug/Substance Use Hx: No Substance Use Type: Alcohol Hx Substance Use Treatment: No Review of Systems - Review of Systems Able to Perform ROS?: Yes Is the patient limited [place] Citizen proficient: No Respiratory: Yes: Shortness of Breath Cardiac (ROS): Yes: Chest Pain *Physical Exam - Vital Signs Last Vital Signs Temp Pulse Resp BP Pulse Ox 98.3 F 70 17 131/92 100 09/08/16 20:15 09/08/16 20:15 09/08/16 20:15 09/08/16 20:15 09/08/16 20:15 - Physical Exam General Appearance: Yes: Other (arguing with , appears angry) Respiratory/Chest: positive: Lungs Clear, Normal Breath Sounds. negative: Chest Tender, Respiratory Distress, Accessory Muscle Use, Labored Respiration, Rapid RR, Decreased Breath Sounds, Paradoxal Breathing, Crackles, Rales, Rhonchi , Stridor, Wheezing, Hyperresonant, Dullness, Plerual Rub, Other Cardiovascular: positive: Regular Rhythm, Regular Rate Gastrointestinal/Abdominal: positive: Normal Bowel Sounds, Tender (Right incision site clean dry and intact, small bulge noted at incision site. ), Soft Extremity: positive: Normal Capillary Refill, Normal Inspection, Normal Range of Motion Integumentary: positive: Normal Color, Dry, Warm Neurologic: positive: Fully Oriented, Alert, Normal Mood/Affect ED Treatment Course - LABORATORY CBC & Chemistry Diagram: 09/08/16 21:34 09/08/16 21:34 - RADIOLOGY Radiograph Interpretation: CTA chest: no PE CTAP: post op changes. 2.0x 2.6 cm fluid filled structure right anterior pelvic wall possibly representing hematoma or seroma along lap track. (patient left before these results were read) Medical Decision Making - Medical Decision Making A: post op pain and swelling at the site. chest pain r/o PE P: CBC: wnl CMP: wnl D-Dimer: elevated. will CTA chest. UA: negative. patient is arguing with . I recommended that patient stay for imaging results. Patient left prior to studies were resulted. Patient is leaving against medical advise. patient said she will follow up with her surgeon. patient did not sign document prior to walking out of ER. *DC/Admit/Observation/Transfer Diagnosis at time of Disposition: Abdominal pain - Discharge Dispostion Disposition: AGAINST MEDICAL ADVICE - Referrals Referrals: Bryce Pearl [Primary Care Provider] -
[2016-09-08 21:50] LABS: EOSINOPHIL 2.7 % (0-4.5); MCH 29.5 pg (25.7-33.7); MCHC 32.1 g/dl (32.0-36.0); MEAN CELL VOLUME 91.9 fl (80-96); MEAN PLT VOLUME 9.1 fl (7.5-11.1); NEUTROPHILS 58.9 % (42.8-82.8); PLATELET COUNT 312 K/MM3 (134-434); RDW 13.7 % (11.6-15.6); WHITE BLOOD COUNT 8.9 K/mm3 (4.0-10.0)
[2016-09-08 22:05] LABS: INR 1.05 (0.82-1.09); PROTHROMBIN TIME (PATIENT) 11.6 SEC (9.98-11.88)
[2016-09-08 22:14] LABS: URINE APPEARANCE CLEAR; URINE BILIRUBIN NEGATIVE (NEGATIVE); URINE BLOOD NEGATIVE (NEGATIVE); URINE COLOR STRAW; URINE GLUCOSE (UA) NEGATIVE (NEGATIVE); URINE KETONE NEGATIVE (NEGATIVE); URINE LEUK ESTERASE NEGATIVE (NEGATIVE); URINE NITRITE NEGATIVE (NEGATIVE); URINE PROTEIN NEGATIVE (NEGATIVE); URINE UROBILINOGEN NEGATIVE E.U./dl (0.2-1.0)
[2016-09-08] MEDS ORDERED: morphine CARPU-JECT 2 MG/1 ML DISP.SYRIN IVPUSH ONE (22:18)
[2016-09-08] MEDS ORDERED: morphine CARPU-JECT 2 MG/1 ML DISP.SYRIN ONE (22:23)
[2016-09-08 22:52] LABS: ALBUMIN 3.6 g/dl (3.4-5.0); ANION GAP 9 (8-16); BILIRUBIN,TOTAL 0.3 mg/dL (0.2-1.0); CALCIUM 8.8 mg/dL (8.5-10.1); CO2 26 mmol/L (21-32); COCKROFT - GAULT 139.2215; CREATININE 0.7 mg/dL (0.55-1.02); GLUCOSE,RANDOM 91 mg/dL (74-106); MAGNESIUM 2.1 mg/dL (1.8-2.4); SGOT/AST 21 U/L (15-37); SGPT/ALT 31 U/L (12-78); TOT PROT 6.5 g/dl (6.4-8.2)
[2016-09-08 22:55] LABS: ALK PHOS 66 U/L (45-117); TROPONIN I < 0.02 ng/ml (0.00-0.05)
--- NOTE | 2016-09-09 22:56 | EKG ---
Test Reason : Blood Pressure : / mmHG Vent. Rate : 071 BPM Atrial Rate : 071 BPM P-R Int : 166 ms QRS Dur : 092 ms QT Int : 400 ms P-R-T Axes : 039 070 054 degrees QTc Int : 434 ms NORMAL SINUS RHYTHM NORMAL ECG WHEN COMPARED WITH ECG OF 03-SEP-2016 17:32, NO SIGNIFICANT CHANGE WAS FOUND Confirmed by ABDULAZIZ GONZALEZ MD ([id number]) on 09/09/2016 10:55:55 PM Referred By: Confirmed By:ABDULAZIZ GONZALEZ MD
== END 2016-09-09 00:24 | disposition left against medical advice (07) ==
LOC: JER 20:02
DX: Z53.21 Procedure and treatment not carried out due to patient leaving prior to being seen by health care provider (principal)
CPT/HCPCS: 36415; 71275-TC; 74177-TC; 80053; 81003; 82550; 82553; 83735; 84484; 84703; 85025; 85379; 85610; 93005; 93010; 99283-25

== ENCOUNTER 2016-09-12 19:52 | Inpatient (IN) | payer OTHER ==
--- NOTE | 2016-09-12 20:31 | PDOC ---
History of Present Illness - General History Source: Patient, Family, Old Records Exam Limitations: No Limitations - History of Present Illness Initial Comments: 09/12/16 21:53 The patient is a 35 year old female, with a significant past medical history of Acid Reflux, hiatal hernia, PTSD and fibromyalgia, who presents to the emergency department with right sided abdominal pain and hematoma for the past 2 weeks. She reports that she had an oopherectomy on 08/31/2016 and since has had pain and hematoma develop. She also reports that she has noticed a fever of 101 F during this time frame. The patient notes that she has an appointment with wound care next week and shes not able to wait that long due to the pain. She notes that she has seen Dr. Keene multiple times for this issue without any resolvement of the matter, as well as having multiple visits to the ED. The patient denies chest pain, shortness of breath, headache and dizziness. Denies fever, chills, nausea, vomit, diarrhea and constipation. Denies dysuria, frequency, urgency and hematuria. Allergies: None Past surgical history: ARTHROSCOPY R KNEE, tummy tuck Social history: Alcohol use. Cigarette use (3 daily). No drug use reported <Marbin Pedraza - Last Filed: 09/12/16 21:53> <aJn Guadarrama - Last Filed: 09/12/16 22:31> - General Chief Complaint: Pain Stated Complaint: INFECTION Past History <Marbin Pedraza - Last Filed: 09/12/16 21:53> - Past Medical History Anemia: No Asthma: No Cancer: No Cardiac Disorders: No CVA: No COPD: No CHF: No Dementia: No Diabetes: No GI Disorders: Yes (ACID REFLUX,HIATAL HERNIA) Disorders: No HTN: No Hypercholesterolemia: No Liver Disease: No Psychiatric Problems: Yes (PTSD) Seizures: No Thyroid Disease: No Other medical history: fibromyalgia - Surgical History Abdominal Surgery: Yes (MINI TUMMY TUCK) Appendectomy: No Cardiac Surgery: No Cholecystectomy: No Lung Surgery: No Neurologic Surgery: No Orthopedic Surgery: Yes (ARTHROSCOPY R KNEE) - Immunization History Immunization Up to Date: Yes - Psycho/Social/Smoking Cessation Hx Anxiety: No Suicidal Ideation: No Smoking History: Unknown if ever smoked Have you smoked in the past 12 months: No Number of Cigarettes Smoked Daily: 3 Cigars Per Day: 0 Information on smoking cessation initiated: No 'Breaking Loose' booklet given: 07/12/15 Hx Alcohol Use: No Drug/Substance Use Hx: No Substance Use Type: Alcohol Hx Substance Use Treatment: No <ChiaraJan - Last Filed: 09/12/16 22:31> - Past Medical History Allergies/Adverse Reactions: Allergies Allergy/AdvReac Type Severity Reaction Status Date / Time aspirin Allergy Mild Hives Verified 09/12/16 20:21 Home Medications: Ambulatory Orders Amoxicillin/Potassium Clav [Augmentin 875-125 Tablet] 1 each PO BID #20 tablet 08/07/16 Hydromorphone [Dilaudid -] 2 - 4 mg PO Q6H #42 tablet MDD 8 09/01/16 Review of Systems - Review of Systems Able to Perform ROS?: Yes Comments:: 09/12/16 21:53 CONSTITUTIONAL: No fever, no chills, no fatigue EYES: No visual changes ENT: No ear pain, no sore throat CARDIOVASCULAR: No chest pain, no palpitations RESPIRATORY: No cough, no SOB GI: +Right sided abdominal pain. No nausea, no vomiting, no constipation, no diarrhea GENITOURINARY: No dysuria, no frequency, no hematuria MUSKULOSKELETAL: No backpain, no joint pain, no myalgias SKIN: +Ecchymosis and hematoma on the right lower adominal quadrant. No rash NEURO: No headache <Marbin Pedraza - Last Filed: 09/12/16 21:53> *Physical Exam - Vital Signs Last Vital Signs Temp Pulse Resp BP Pulse Ox 99.1 F 85 18 125/93 100 09/12/16 20:21 09/12/16 20:21 09/12/16 20:21 09/12/16 20:21 09/12/16 20:21 - Physical Exam Comments: 09/12/16 21:53 CONSTITUTIONAL: Well-appearing; well-nourished; in no apparent distress HEAD: Normocephalic; atraumatic EYES: PERRL; EOM intact ENMT: External appears normal; normal oropharynx NECK: Supple; non-tender; no cervical lymphadenopathy CARD: Normal S1, S2; no murmurs, rubs, or gallops RESP: Normal chest excursion with respiration; breath sounds clear and equal bilaterally; no wheezes, rhonchi, or rales EXT: Normal ROM in all four extremities; non-tender to palpation; distal pulses intact NEURO: No focal neurological deficiencies. <Marbin Pedraza - Last Filed: 09/12/16 21:53> - Vital Signs Last Vital Signs Temp Pulse Resp BP Pulse Ox 99.1 F 85 18 125/93 100 09/12/16 20:21 09/12/16 20:21 09/12/16 20:21 09/12/16 20:21 09/12/16 20:21 - Physical Exam Comments: PE cont.: ABD: + Extensive subcutaneous hematoma involving the right lower quadrant, right lower pelvic area and right hip, with a 3 cm area of induration to the right lower quadrant area of the anterior abdominal wall which is exquisitely tender to palpation and mildly fluctuant; is no guarding or rebound; bowel sounds are present in all 4 quadrants. SKIN: See above; <Jan Guadarrama - Last Filed: 09/12/16 22:31> ED Treatment Course - LABORATORY CBC & Chemistry Diagram: 09/12/16 21:28 09/12/16 21:40 - ADDITIONAL ORDERS Additional order review: Laboratory Results 09/12/16 21:00 Urine Color Ltyellow Urine Appearance Clear Urine pH 5.0 D Ur Specific Emma Urine Protein Negative Urine Glucose (UA) Negative Urine Ketones Negative Urine Blood Negative Urine Nitrite Negative Urine Bilirubin Negative Urine Urobilinogen Negative Ur Leukocyte Esterase Negative Urine HCG, Qual Negative 09/12/16 21:28 RBC 3.32 L MCV 89.8 MCHC 32.9 RDW 13.8 MPV 8.8 Neutrophils % 57.8 Lymphocytes % 31.4 Monocytes % 7.4 Eosinophils % 2.6 Basophils % 0.8 <Marbin Pedraza - Last Filed: 09/12/16 21:53> - LABORATORY CBC & Chemistry Diagram: 09/12/16 21:28 09/12/16 21:40 <Jan Guadarrama - Last Filed: 09/12/16 22:31> Medical Decision Making - Medical Decision Making 09/12/16 21:54 Dr. Linda Keene was called regarding the patient at 9:21pm. Dr. Keene was consulted regarding the patient at 9:22pm [phone] Dr. Keene arrived to see the patient at the bedside at 9:55pm and is attempting an incision to drain the hematoma. <Marbin Pedraza - Last Filed: 09/12/16 21:53> - Medical Decision Making 09/12/16 22:29 Patient is a 35-year-old female who presents with signs and symptoms of acute infected postop hematoma to the right lower quadrant of the anterior abdominal wall. In the ER, patient is awake and alert, nontoxic appearing, with a 3 cm indurated and somewhat fluctuant mass. CBC is within normal limit. Dr. Keene of [facility] is at bedside performing an IND of the lesion. Patient has received IV Unasyn and will be placed in observation <Jan Guadarrama - Last Filed: 09/12/16 22:31> *DC/Admit/Observation/Transfer - Attestations Scribe Attestion: 09/12/16 21:54 Documentation prepared by Marbin Pedraza, acting as medical reviewer for Jan Guadarrama MD <Marbin Pedraza - Last Filed: 09/12/16 21:53> - Discharge Dispostion Admit: Yes - Attestations Physician Attestion: 09/12/16 21:58 The documentation was prepared by the scribe under my direct supervision. I have reviewed the documentation which correctly represents the findings, medical decision-making and critical action taken by me. <Jan Guadarrama - Last Filed: 09/12/16 22:31> Diagnosis at time of Disposition: Hematoma complicating a procedure - Discharge Dispostion Condition at time of disposition: Fair - Referrals Referrals: Bryce Pearl [Primary Care Provider] -
[2016-09-12 21:16] LABS: URINE APPEARANCE CLEAR; URINE BILIRUBIN NEGATIVE (NEGATIVE); URINE BLOOD NEGATIVE (NEGATIVE); URINE COLOR LTYELLOW; URINE GLUCOSE (UA) NEGATIVE (NEGATIVE); URINE KETONE NEGATIVE (NEGATIVE); URINE LEUK ESTERASE NEGATIVE (NEGATIVE); URINE NITRITE NEGATIVE (NEGATIVE); URINE PROTEIN NEGATIVE (NEGATIVE); URINE UROBILINOGEN NEGATIVE E.U./dl (0.2-1.0)
[2016-09-12 21:35] LABS: BASOPHIL 0.8 % (0-2.0); EOSINOPHIL 2.6 % (0-4.5); MCH 29.5 pg (25.7-33.7); MCHC 32.9 g/dl (32.0-36.0); MEAN CELL VOLUME 89.8 fl (80-96); MEAN PLT VOLUME 8.8 fl (7.5-11.1); NEUTROPHILS 57.8 % (42.8-82.8); PLATELET COUNT 296 K/MM3 (134-434); RDW 13.8 % (11.6-15.6); WHITE BLOOD COUNT 9.4 K/mm3 (4.0-10.0)
[2016-09-12] MEDS ORDERED: AMPICILLIN NA/SULBACTAM NA 3 GM in SODIUM CHLORIDE 100 ML IVPB ONE (21:35)
[2016-09-12] MEDS ORDERED: LIDOCAINE 1%/EPI 1:100000 (50 ML MULTI DOSE VIAL) ONE (21:53)
[2016-09-12] MEDS ORDERED: HYDROmorphone HCL CARPU-JECT 2 MG/1 ML DISP.SYRIN ONE (21:54)
[2016-09-12] MEDS ORDERED: HYDROmorphone HCL CARPU-JECT 2 MG/1 ML DISP.SYRIN IVPB ONE (21:56)
[2016-09-12 22:26] LABS: INR 0.96 (0.82-1.09); PROTHROMBIN TIME (PATIENT) 10.5 SEC (9.98-11.88)
[2016-09-12 22:35] LABS: ALBUMIN 3.5 g/dl (3.4-5.0); ALK PHOS 69 U/L (45-117); ANION GAP 9 (8-16); BILIRUBIN,TOTAL 0.2 mg/dL (0.2-1.0); CALCIUM 8.9 mg/dL (8.5-10.1); CO2 25 mmol/L (21-32); COCKROFT - GAULT 139.2215; CREATININE 0.7 mg/dL (0.55-1.02); GLUCOSE,RANDOM 94 mg/dL (74-106); SGOT/AST 16 U/L (15-37); SGPT/ALT 27 U/L (12-78); TOT PROT 6.4 g/dl (6.4-8.2)
--- NOTE | 2016-09-12 23:02 | HP ---
Admitting History and Physical - Admission Chief Complaint: abdominal/incisional pain History of Present Illness: 35 y/o female with past medical history of PTSD, fibromyalgia, GERD with hiatal hernia and ovarian cysts presented to the ED tonight with complaints of continued abdominal pain at laparoscopic incisional site - pt is 12 days s/p laparoscopic oophorectomy for an ovarian torsion and ruptured ovarian cyst on . The patient has been diagnosed with a wound hematoma which the patient has been managing conservatively at home with hot/cold compresses and pain medication. The ecchymosis has improved greatly over the past 2 weeks but the subcutaneous hematoma has not decreased in size. The patient was seen in the office this morning and plan was made for follow up with wound care center next week. The patient, since that time, states she noted a fever of 101 at home and chills which is what prompted her to come to the ED. Pt has no other complaints today. History Source: Patient, Medical Record Limitations to Obtaining History: No Limitations - Past Medical History Cardiovascular: No: HTN, [place] Pulmonary: Yes: Asthma Gastrointestinal: Yes: GERD. No: Cancer, Pancreatitis Reproductive: No: Ectopic , Endometriosis ...LMP: 02/02/15 ...: No Heme/Onc: No: Hypercoaguable State, Thrombocytopenia Infectious Disease: No: HIV, MRSA, STD's Psych: Yes: Other (PTSD) Musculoskeletal: Yes: Other (history of lower back lipomas - surgically removed history of right knee surgery) Rheumatology: Yes: Fibromyalgia Endocrine: No: Diabetes Mellitus, Hypothyroidism - Past Surgical History Past Surgical History: Yes: Breast Biopsy, , Cystectomy (ovarian), Hysterectomy, Tubal Ligation (salpingectomy) Additional Past Surgical History: laparoscopic right oophorectomy on 08/31/16 due to ovarian torsion and rupture hemorrhagic ovarian cyst - Smoking History Smoking history: Current every day smoker Have you smoked in the past 12 months: No Aproximately how many cigarettes per day: 3 - Alcohol/Substance Use Hx Alcohol Use: No History of Substance Use: reports: Prescription (is prescribed tylenol with codeine for back pain) - Social History Usual Living Arrangement: Yes: With Spouse ADL: Independent History of Recent Travel: No Home Medications - Allergies Allergies/Adverse Reactions: Allergies Allergy/AdvReac Type Severity Reaction Status Date / Time aspirin Allergy Mild Hives Verified 09/12/16 20:21 - Home Medications Home Medications: Ambulatory Orders Amoxicillin/Potassium Clav [Augmentin 875-125 Tablet] 1 each PO BID #20 tablet 08/07/16 Hydromorphone [Dilaudid -] 2 - 4 mg PO Q6H #42 tablet MDD 8 09/01/16 Review of Systems - Review of Systems Constitutional: reports: Chills, Fever Eyes: reports: No Symptoms HENT: reports: No Symptoms Neck: reports: No Symptoms Cardiovascular: reports: No Symptoms Respiratory: reports: No Symptoms Gastrointestinal: reports: Abdominal Pain (superficial at site of wound hematoma ) Genitourinary: reports: No Symptoms Breasts: reports: No Symptoms Reported Integumentary: reports: Bruising, Lump, Wound, Other (wound hematoma) Hematology/Lymphatic: reports: No Symptoms Psychiatric: reports: No Symptoms Physical Examination Vital Signs: Vital Signs Temperature 99.1 F 09/12/16 20:21 Pulse Rate 85 09/12/16 20:21 Respiratory Rate 18 09/12/16 20:21 Blood Pressure 125/93 09/12/16 20:21 O2 Sat by Pulse Oximetry (%) 100 09/12/16 20:21 Constitutional: Yes: Well Nourished, Calm, Mild Distress (Pt in some pain upon my entry to the room) Eyes: Yes: Conjunctiva Clear HENT: Yes: Atraumatic, Normocephalic Neck: Yes: Supple, Trachea Midline Cardiovascular: Yes: Regular Rate and Rhythm Respiratory: Yes: Regular, CTA Bilaterally Gastrointestinal: Yes: Normal Bowel Sounds, Soft, Tenderness (RLQ superficially 2/2 wound hematoma) Musculoskeletal: Yes: WNL Extremities: Yes: WNL Wound/Incision: Yes: Clean/Dry, Well Approximated, Other (RLQ wound clean/dry/ intact no erythema. No drainage. 3x4cm palpable hematoma subcutaneously - tender to touch) Neurological: Yes: Alert, Oriented Psychiatric: Yes: Alert, Oriented Labs: CBC, BMP 09/12/16 21:28 09/12/16 21:40 Problem List - Problems (1) Hematoma complicating a procedure Code(s): [id number] - (2) Abdominal pain Code(s): R10.9 - UNSPECIFIED ABDOMINAL PAIN Qualifiers: Abdominal location: generalized Qualified Code(s): R10.84 - Generalized abdominal pain (3) Postoperative hematoma of subcutaneous tissue following non-dermatologic procedure Code(s): L76.32 - POSTPROC HEMATOMA OF SKIN, SUBCU FOLLOWING OTHER PROCEDURE Assessment/Plan 35 y/o female 12 days s/p right oophorectomy 2/2 ovarian torsion and ruptured hemorrhagic cyst here due to significant pain and subjective fevers at home. - AFVSS - CBC WNL - WBC WNL no leukocytosis and Hgb stable from last CBC drawn on 09/08 - subcutaneous wound hematoma noted - discussed options with patient including continued conservative therapy with warm compresses and pain control, I&D at the bedside or I&D in the operating room. R/B/A of all options discussed with patient. Patient desires to attempt I&D at bedside today. - Plan for I&D at bedside, admit overnight for observation and pain control, possible IV antibiotics - if stable, for discharge home in the morning and visiting nurse for home wound care if needed
--- NOTE | 2016-09-12 23:18 | PROC ---
Procedure Note Procedure: Indication: Pain and concern for infection Procedure: I&D of subcutaneous hematoma on right Lower quadrant Physician: Dr. Linda Keene, DO Findings - approx 10cc of blood/clot noted subcutaneously, no infectious process or purulent material noted. Fascia probed and in tact. Anesthesia - 10cc of 1% lidocaine with epinephrine, pt also received 2mg of IV Dilaudid immediately before staring procedure Complications: None Dispo: stable to floor for 23 hour obs After speaking with patient regarding her diagnosis, options for therapy and discussing risks/benefits/alternatives. The patient elected to undergo an incision and drainage of her subcutaneous hematoma at the bedside. The scar/incision site was prepped with betadine solution and a sterile drape was placed. Next 10cc of 1% lidocaine with epinephrine was injected subdermally at the hematoma site. Next, using a 15 blade, a small 2cm incision in the skin through to the level of the subcutaneous space. A small amount of blood was noted. Next a sterile cotton tip applicator was used to probe the incision. The fascia appeared in tact. The wound was probed and an approximately 3x3cm defect was noted subcutaneously. Any blood clot was broken up with the probe and drained. Next the wound was irrigated several times with sterile saline solution. Next, using 1/4 inch packing, the wound was packed, and a sterile gauze and dressing was applied. The patient tolerated the procedure well and was then admitted to the floor for observation overnight. Incision and Drainage Indication/Location: Right Lower Quadrant subcutaneous hematoma - concern for infection
[2016-09-12] MEDS ORDERED: HYDROmorphone HCL 2 MG TABLET PO PRN (23:21)
[2016-09-13] MEDS ORDERED: HYDROmorphone HCL CARPU-JECT 1 MG/1 ML DISP.SYRIN IVPB ONE (00:22)
[2016-09-13] MEDS ORDERED: HYDROmorphone HCL CARPU-JECT 1 MG/1 ML DISP.SYRIN ONE (00:46)
[2016-09-13] MEDS: LACTATED RINGERS SOLUTION 1,000 ML IV SCH ×3 (00:58→23:37)
[2016-09-13 02:00] VITALS: BMI 31.0
[2016-09-13] MEDS: IBUPROFEN 600 MG TABLET (FP) PO PRN (04:10)
[2016-09-13] MEDS: CEFAZOLIN (PRE-DOCKED) 50 ML IVPB SCH ×2 (06:07→16:36)
--- NOTE | 2016-09-13 08:27 | PN ---
Progress Note, Physician History of Present Illness: Pt seen/evaluated. S/P I&D of subcutnaeous incisional hematoma last night. Pt feels much improvement in pain. No fevers overnight. Denies CP/SOB/F/C/FIORE. - Current Medication List Current Medications: Active Medications Hydromorphone HCl (Dilaudid -) 2 mg PO Q4H PRN PRN Reason: PAIN Hydromorphone HCl (Dilaudid -) 4 mg PO Q4H PRN PRN Reason: PAIN Last Admin: 09/13/16 08:08 Dose: 4 mg Lactated Ringer's (Lactated Ringers Solution) 1,000 mls @ 75 mls/hr IV ASDIR YOHANNES Last Admin: 09/13/16 00:58 Dose: 75 mls/hr Cefazolin Sodium (Ancef 1gm Ivpb (Pre-Docked)) 50 mls @ 100 mls/hr IVPB Q8H YOHANNES Stop: 09/13/16 15:29 Last Admin: 09/13/16 06:07 Dose: 100 mls/hr Ibuprofen (Motrin -) 600 mg PO Q6H PRN PRN Reason: FEVER Last Admin: 09/13/16 04:10 Dose: 600 mg Nicotine (Nicoderm Patch -) 7 mg TD DAILY [facility] - Objective Vital Signs: Vital Signs Temperature 98.6 F 09/13/16 08:06 Pulse Rate 68 09/13/16 08:06 Respiratory Rate 20 09/13/16 08:06 Blood Pressure 122/69 09/13/16 08:06 O2 Sat by Pulse Oximetry (%) 99 09/13/16 01:30 Constitutional: Yes: Well Nourished, No Distress, Calm Eyes: Yes: Conjunctiva Clear, EOM Intact HENT: Yes: Atraumatic, Normocephalic Neck: Yes: Supple, Trachea Midline Cardiovascular: Yes: Regular Rate and Rhythm Respiratory: Yes: Regular, CTA Bilaterally Gastrointestinal: Yes: Normal Bowel Sounds, Soft, Tenderness (appropriately tender to palpation - improved s/p I&D of incision last night) Genitourinary: No: Vaginal Bleeding Wound/Incision: Yes: Clean/Dry, Unapproximated, Other (packing removed, wound irrigated and repacked/redressed at bedside today) Psychiatric: Yes: Alert, Oriented Labs: INR, PTT INR 0.96 (0.82-1.09) 09/12/16 21:40 Problem List - Problems (1) Hematoma complicating a procedure Code(s): [id number] - (2) Abdominal pain Code(s): R10.9 - UNSPECIFIED ABDOMINAL PAIN Qualifiers: Abdominal location: generalized Qualified Code(s): R10.84 - Generalized abdominal pain (3) Postoperative hematoma of subcutaneous tissue following non-dermatologic procedure Code(s): L76.32 - POSTPROC HEMATOMA OF SKIN, SUBCU FOLLOWING OTHER PROCEDURE Assessment/Plan 35 y/o female 13 days s/p right oophorectomy 2/2 ovarian torsion and ruptured hemorrhagic cyst and POD#1 s/p I&D of wound hematoma at bedside in ED. - AFVSS - CBC WNL - WBC WNL no leukocytosis and Hgb stable from last CBC drawn on 09/08 - subcutaneous wound hematoma noted - s/p I&D at bedside on 09/12 - wound cleaned /repacked/redressed today. No signs of infection. To get one more dose of IV antibiotics. - Await case management to arrange home nursing and plan to follow up with wound care next week. Once home nursing set up, ok for discharge home on PO antibiotics
[2016-09-13] MEDS ORDERED: INFLUENZA VACCINE 60 MCG/0.5 ML (P/F DISP.SYRIN 16-17) IM ONE (10:00)
[2016-09-13] MEDS: NICOTINE 7 MG/24 HOURS TOPICAL PATCH TD SCH (11:06)
--- NOTE | 2016-09-13 14:08 | PN ---
Progress Note (short form) - Note Progress Note: Spoke with case management regarding patient's case. Per case management, a home nurse may be available, if covered by insurance, to come to the patient's home and teach the family how to properly perform daily wound care. The patient can be shown how to undress and unpack the wound. They can then be shown how to flush and repack the wound with 1/2 inch plain or iodoform packing using sterile technique. And they then ca be shown how to redress the wound. If covered by insurance, the patient may have this service once for teaching and possibly once for follow up to check the wound at a later date per case mangement. If the patient is to stay until Thursday morning, the patient will wait for the above to be arranged by caste management before discharge. Problem List - Problems (1) Hematoma complicating a procedure Code(s): [id number] - (2) Abdominal pain Code(s): R10.9 - UNSPECIFIED ABDOMINAL PAIN Qualifiers: Abdominal location: generalized Qualified Code(s): R10.84 - Generalized abdominal pain (3) Postoperative hematoma of subcutaneous tissue following non-dermatologic procedure Code(s): L76.32 - POSTPROC HEMATOMA OF SKIN, SUBCU FOLLOWING OTHER PROCEDURE
--- NOTE | 2016-09-13 15:12 | HOSP ---
Subjective - Review of Symptoms Subjective: Notified by RN that pt developed CP while being administered benadryl IV pt states she felt a warm sensation go up her arm where the injection was given and across her chest. pt states it went away less than a minute but states she feels like she cant catch her breath since medication was given. states she has been having bloody dressing changes from surgical wound. Last Vital Signs Temp Pulse Resp BP Pulse Ox 98.7 F 83 20 144/60 96 09/13/16 09:33 09/13/16 14:40 09/13/16 14:40 09/13/16 14:40 09/13/16 14:40 General NAD CV S1 S2 RRR no murmur/rub/gallop no chest wall tenderness Impression likely tranisent hypotension vs histamine effect from medication. (vitals above were done after her CP) however in setting of anemia and pt stating shes been having bloody bandages, would check cbc to ensure no acute blood loss anemia causing the symptoms as well check cardiac enzymes although low suspicion for ACS Physical Examination Vital Signs: Vital Signs Temperature 98.7 F 09/13/16 09:33 Pulse Rate 83 09/13/16 14:40 Respiratory Rate 20 09/13/16 14:40 Blood Pressure 144/60 09/13/16 14:40 O2 Sat by Pulse Oximetry (%) 96 09/13/16 14:40
[2016-09-13 17:06] LABS: MCH 29.4 pg (25.7-33.7); MCHC 32.7 g/dl (32.0-36.0); MEAN CELL VOLUME 90.1 fl (80-96); MEAN PLT VOLUME 9.3 fl (7.5-11.1); PLATELET COUNT 298 K/MM3 (134-434); RDW 13.7 % (11.6-15.6); WHITE BLOOD COUNT 7.8 K/mm3 (4.0-10.0)
[2016-09-13 17:39] LABS: TROPONIN I < 0.02 ng/ml (0.00-0.05)
[2016-09-14] MEDS: NICOTINE 7 MG/24 HOURS TOPICAL PATCH TD SCH ×2 (09:59→10:03)
[2016-09-14] MEDS: IBUPROFEN 600 MG TABLET (FP) PO PRN (12:50)
[2016-09-14] MEDS: LACTATED RINGERS SOLUTION 1,000 ML IV SCH (23:55)
[2016-09-15] MEDS: NICOTINE 7 MG/24 HOURS TOPICAL PATCH TD SCH (10:51)
[2016-09-15 13:38] VITALS: BP 129/77; PULSE 86; TEMP 98.4
--- NOTE | 2016-09-21 14:06 | DS ---
Physical Examination Vital Signs: Vital Signs Temperature 98.4 F 09/15/16 10:00 Pulse Rate 86 09/15/16 10:00 Respiratory Rate 20 09/15/16 10:00 Blood Pressure 129/77 09/15/16 10:00 O2 Sat by Pulse Oximetry (%) 100 09/15/16 09:00 Labs: CBC, BMP 09/13/16 16:50 Discharge Summary Reason For Visit: HEMATOMA COMPLICATING A PROCEDURE Current Active Problems Hematoma complicating a procedure (Acute) Postoperative hematoma of subcutaneous tissue following non-dermatologic procedure (Acute) Procedures: Principal: bedside I&D of incisional hematoma Hospital Course: Patient admitted on 09/12/16 with complaints of lower quadrant pain and swelling at the site of her incision from a prior surgery on 08/31. The patient underwent an incision and drainage of the wound in the emergency department and the wound was then packed with sterile packing (see procedure note for full details). The patient did well overnight and was set for discharge home the next day, however case management was unable to set the patient up with home nursing care over the weekend. The patient then stayed until Friday 09/15 - on that day the patient signed out before being seen by the attending economics analyst. She had an appointment the following day for follow up in the office. Condition: Good - Instructions Diet, Activity, Other Instructions: Physical activity Resume your normal everyday activity as tolerated but no heavy lifting or strenuous exercise until seen by your doctor. You may walk unlimited amounts and climb stairs. You may resume driving the car when you feel safe and comfortable behind the wheel but NOT if taking narcotic medications. Wound care Please change packing daily as instructed. You may have home nursing to come help you some days, but the days that they are not there to help, please change the packing as directed. Diet There are no dietary restrictions. Eat healthy, high-fiber foods. Drink 6 to 8 glasses of liquid each day. This will assist in keeping your bowels regular. Pain management You may take Tylenol or Ibuprofen (for example, Motrin, Advil etc.) over the counter for mild pain. If any pain prescription medication is ordered should be taken as prescribed for moderate to severe pain. Call Dr. Keene for any of the following: Severe pain not relieved by medication Fever of 101 or higher Excessive bleeding or drainage on dressing Inability to urinate Call the office at [phone] for an appointment in seven days. Referrals: Bryce Pearl [Primary Care Provider] - Disposition: AGAINST MEDICAL ADVICE - Home Medications Comprehensive Discharge Medication List: Ambulatory Orders Hydromorphone [Dilaudid -] 2 - 4 mg PO Q6H #42 tablet MDD 8 09/01/16 Cephalexin [Keflex] 500 mg PO Q12H #14 capsule 09/13/16
== END 2016-09-15 12:24 | disposition left against medical advice (07) | DRG 791 ==
LOC: JER 19:52 → JERBED 22:31 → J5S 09-13 01:20 → OBSVTOIN 09-13 14:00 → J5S 09-13 14:27
PROVIDERS: ADMIT Obstetrics & Gynecology; ATTEND Obstetrics & Gynecology
PROC: 0J980ZZ Drainage of Abdomen Subcutaneous Tissue and Fascia, Open Approach (ICD-10-PCS; principal; 2016-09-12)
DX: N99.840 Postprocedural hematoma of a genitourinary system organ or structure following a genitourinary system procedure (principal); Y83.8 Other surgical procedures as the cause of abnormal reaction of the patient, or of later complication, without mention of misadventure at the time of the procedure; F43.10 Post-traumatic stress disorder, unspecified; K21.9 Gastro-esophageal reflux disease without esophagitis; K44.9 Diaphragmatic hernia without obstruction or gangrene; M79.7 Fibromyalgia; R10.9 Unspecified abdominal pain; R07.89 Other chest pain; I95.89 Other hypotension; D64.9 Anemia, unspecified
CPT/HCPCS: 36415; 80053; 81003; 82550; 84484; 84703; 85025; 85027; 85610; 86850; 86900; 86901; 87040; 99283-25; G0378

== ENCOUNTER 2016-10-17 15:15 | Emergency (ER) | payer OTHER ==
[2016-10-17 15:26] VITALS: BP 146/85; PULSE 97; TEMP 97.1
--- NOTE | 2016-10-17 15:58 | PDOC ---
History of Present Illness - General Chief Complaint: Psychiatric Stated Complaint: ANXIETY (RX) Time Seen by Provider: 10/17/16 15:27 History Source: Patient Past History - Past Medical History Allergies/Adverse Reactions: Allergies Allergy/AdvReac Type Severity Reaction Status Date / Time aspirin Allergy Mild Hives Verified 09/12/16 20:21 Home Medications: Ambulatory Orders Hydromorphone [Dilaudid -] 2 - 4 mg PO Q6H #42 tablet MDD 8 09/01/16 Cephalexin [Keflex] 500 mg PO Q12H #14 capsule 09/13/16 Lorazepam [Ativan] 0.5 mg PO Q8H PRN #6 tablet MDD 3 10/17/16 Anemia: No Asthma: No Cancer: No Cardiac Disorders: No CVA: No COPD: No CHF: No Dementia: No Diabetes: No GI Disorders: Yes (ACID REFLUX,HIATAL HERNIA) Disorders: No HTN: No Hypercholesterolemia: No Liver Disease: No Psychiatric Problems: Yes (PTSD) Seizures: No Thyroid Disease: No - Surgical History Abdominal Surgery: Yes (abdominoplasty) Appendectomy: No Cardiac Surgery: No Cholecystectomy: No Lung Surgery: No Neurologic Surgery: No Orthopedic Surgery: Yes (ARTHROSCOPY B/L knees) - Immunization History Immunization Up to Date: Yes - Psycho/Social/Smoking Cessation Hx Anxiety: No Suicidal Ideation: No Smoking History: Never smoked Have you smoked in the past 12 months: No Number of Cigarettes Smoked Daily: 0 Cigars Per Day: 0 Information on smoking cessation initiated: No 'Breaking Loose' booklet given: 09/13/16 Hx Alcohol Use: No Drug/Substance Use Hx: No Substance Use Type: None Hx Substance Use Treatment: No *Physical Exam - Vital Signs Last Vital Signs Temp Pulse Resp BP Pulse Ox 97.1 F L 97 H 18 146/85 100 10/17/16 15:23 10/17/16 15:23 10/17/16 15:23 10/17/16 15:23 10/17/16 15:23 - Physical Exam Neck: positive: Tender *DC/Admit/Observation/Transfer Diagnosis at time of Disposition: Anxiety - Discharge Dispostion Disposition: HOME Condition at time of disposition: Stable Admit: No - Prescriptions Prescriptions: Lorazepam [Ativan] 0.5 mg PO Q8H PRN #6 tablet MDD 3 PRN Reason: Anxiety
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
== END 2016-10-17 16:58 | disposition home or self-care (01) ==
LOC: JERFT 15:15
DX: F41.9 Anxiety disorder, unspecified (principal); F43.10 Post-traumatic stress disorder, unspecified; M79.7 Fibromyalgia; K21.9 Gastro-esophageal reflux disease without esophagitis
CPT/HCPCS: 99281-25

== ENCOUNTER 2018-05-06 05:06 | Day surgery (SDC) | payer OTHER ==
[2018-05-06 11:23] VITALS: BMI 34.0
[2018-05-06] MEDS ORDERED: MIDAZOLAM HCL 2 MG/2 ML SINGLE DOSE VIAL ONE (13:31)
[2018-05-06] MEDS ORDERED: ROCURONIUM BROMIDE 50 MG/5 ML VIAL ONE (13:32)
[2018-05-06] MEDS ORDERED: PROPOFOL 20 ML ONE ×2 (13:32→15:02)
[2018-05-06] MEDS ORDERED: SUCCINYLCHOLINE CHLORIDE 200 MG/10 ML VIAL ONE (13:32)
[2018-05-06] MEDS ORDERED: LIDOCAINE HCL/PF 2% SDV 5ML VIAL ONE (13:32)
[2018-05-06] MEDS ORDERED: DEXAMETHASONE SOD PHOSPHATE 4 MG/1 ML VIAL ONE (13:35)
[2018-05-06] MEDS ORDERED: ONDANSETRON 4 MG/2 ML VIAL IVPUSH PRN (13:54)
[2018-05-06] MEDS ORDERED: LACTATED RINGERS SOLUTION 1,000 ML IV SCH (14:00)
[2018-05-06] MEDS ORDERED: ACETAMINOPHEN 325 MG TABLET (FP) PO PRN (14:27)
--- NOTE | 2018-05-06 14:29 | HP ---
History & Physical Update - History History: No Change - Physical Physical: No Change - Assessment Assessment: No Change - Plan Plan: No Change (agree with H&P from 05/03/18, for laparoscopic ovarian cystectomy)
[2018-05-06] MEDS ORDERED: GLYCOPYRROLATE 0.2 MG/1 ML VIAL ONE (15:23)
[2018-05-06] MEDS ORDERED: NEOSTIGMINE METHYLSULFATE 0.5 MG/ML - 10 ML MDV ONE (15:23)
[2018-05-06] MEDS ORDERED: BUPIVACAINE HCL/PF 0.5% (5MG/ML) 10 ML VIAL ONE (15:26)
[2018-05-06] MEDS ORDERED: BUPIVACAINE HCL/PF 0.5% (5MG/ML) 10 ML VIAL IJ ONE (15:29)
--- NOTE | 2018-05-06 16:38 | OP ---
Operative Note - Note: Operative Date: 05/06/18 Pre-Operative Diagnosis: left ovarian cyst Operation: laparoscopic left ovarian cystectomy Post-Operative Diagnosis: Same as Pre-op Surgeon: Linda Keene Brim Raiser: Viviana Dale Anesthesiologist/INSURANCE TERRITORY MANAGER: Gm Cortes Anesthesia: General Specimens Removed: left ovarian cyst wall Estimated Blood Loss (mls): 15 Fluid Volume Replaced (mls): 700 Operative Report Dictated: Yes
--- NOTE | 2018-05-06 16:39 | SURG ---
Surgery Fingerprint Technician Note Fingerprint Technician: Viviana Dale PA-C Date of Service: 05/06/18 Diagnosis: Left Ovarian cyst Procedure: laparoscopic left ovarian cystectomy I was present for the entirety of the operative procedure. For further detail, please refer to operative report. Visit type - Case Type Case Type: Scheduled - Emergency Emergency Visit: No - New patient This patient is new to me today: Yes Date on this admission: 05/06/18
[2018-05-06] MEDS ORDERED: oxyCODONE HCL 5 MG TABLET ONE (17:09)
[2018-05-06] MEDS ORDERED: oxyCODONE HCL 5 MG TABLET PO PRN (17:12)
[2018-05-06 18:23] VITALS: BP 122/79; PULSE 61; TEMP 97.9
--- NOTE | 2018-05-07 09:45 | OP ---
DATE OF OPERATION: 05/06/2018 PREOPERATIVE DIAGNOSIS: Pelvic pressure and left ovarian cyst. POSTOPERATIVE DIAGNOSIS: Pelvic pressure and left ovarian cyst. PROCEDURE: Laparoscopic left ovarian cystectomy. SURGEON: Linda Keene MD BINDERY LIBRARY TECHNICAL ASSISTANT: JIGAR Holland ANESTHESIA: General by Dr. Gm Cortes. ESTIMATED BLOOD LOSS: 15 mL. COMPLICATIONS: None. DISPOSITION: Stable to PACU. SPECIMEN: Left ovarian cyst wall. COUNTS: Sponge, needle, and instrument counts reported to be correct. BRIEF HISTORY AND PROCEDURE: Patient is a 37-year-old female who was seen in the office complaining of pelvic pressure and was noted to have a persistent left ovarian cyst approximately 4 cm in diameter. The patient was counseled on her options, elected to undergo a laparoscopic removal. Patient signed consents in the office, and she was admitted to [facility] on May 06, 2018. Consents were reconfirmed upon admission. The patient was then taken to the operating room. She was given general anesthesia by Dr. Gm Cortes and placed in the dorsal lithotomy position. A Paul catheter was placed. She was prepped and draped in the usual standard fashion, and a hard time-out was performed. A 5-mm skin incision was created in the umbilicus, and a Veress needle was inserted intraabdominally, and CO2 gas was used to insufflate the abdomen. A 5mm trocar was inserted into the incision and the camera was inserted. After confirmation of intraabdominal placement, two 5-mm lower quadrant ports were placed bilaterally in the left lower quadrant and right lower quadrant areas respectively. The left ovary was identified, and a small simple cyst was appreciated, which was excised with endoshears. The ovarian tissue was incised, and the cyst wall was bluntly dissected away from the ovarian stroma and sent off to Pathology for permanent evaluation. The surgical site was cauterized, and SurgiSeal was placed. This achieved hemostasis. The pelvis was irrigated and suctioned, and excellent hemostasis was achieved. When all trocars were removed from the abdomen, abdomen was desufflated. The skin was reapproximated using 4-0 Biosyn and skin glue. The patient tolerated the procedure. Sponge, needle and instrument counts were reported as correct. She was in stable condition in the PACU after the procedure. LINDA KEENE DO /[id number] MTDD
--- NOTE | 2018-05-10 12:33 | PATH ---
Surgical Pathology Report Patient Name: VENITA BURKETT [facility]. Rec. #: [id number] /Age/Gender: 1980 (Age: 37) / F Account: [id number] Location: [facility] SURGICAL Taken: 05/06/2018 Received: 05/07/2018 Reported: 05/10/2018 Physicians: Linda Keene M.D. Specimen(s) Received LEFT OVARIAN CYST WALL Clinical History Pelvic pain, ovarian cyst Final Diagnosis OVARIAN CYST WALL, LEFT, EXCISION: CONSISTENT WITH CORPUS LUTEUM CYST. Electronically Signed Parul Flores M.D. Gross Description Received in formalin labeled "left ovarian cyst wall," is a 1.5 x 1.3 x 0.2 cm aggregate of mcduffie-brown to yellow soft tissue fragments, consistent with a disrupted cyst. The specimen is submitted in toto in one cassette. 05/07/201805/07/2018
== END 2018-05-06 17:50 | disposition home or self-care (01) ==
LOC: JASU-SURG 05:06
PROVIDERS: ATTEND Obstetrics & Gynecology
PROC: 0UB14ZZ Excision of Left Ovary, Percutaneous Endoscopic Approach (ICD-10-PCS; principal; 2018-05-06 14:30)
DX: N83.202 Unspecified ovarian cyst, left side (principal)
CPT/HCPCS: 88304-TC; 94760

== ENCOUNTER 2018-08-31 08:00 | Emergency (ER) | payer OTHER ==
[2018-08-31 08:11] VITALS: TEMP 98.5; BMI 31.2
[2018-08-31 08:58] LABS: URINE APPEARANCE TURBID; URINE BILIRUBIN NEGATIVE (NEGATIVE); URINE COLOR DK YELLOW; URINE GLUCOSE (UA) NEGATIVE (NEGATIVE); URINE KETONE TRACE (NEGATIVE); URINE LEUK ESTERASE NEGATIVE (NEGATIVE); URINE NITRITE NEGATIVE (NEGATIVE); URINE PROTEIN NEGATIVE (NEGATIVE)
--- NOTE | 2018-08-31 09:01 | PDOC ---
History of Present Illness - General Chief Complaint: Pain, Acute Stated Complaint: ABD PAIN Time Seen by Provider: 08/31/18 08:20 History Source: Patient Exam Limitations: No Limitations Past History - Travel Traveled outside of the country in the last 30 days: No Close contact w/someone who was outside of country & ill: No - Past Medical History Allergies/Adverse Reactions: Allergies Allergy/AdvReac Type Severity Reaction Status Date / Time aspirin Allergy Mild Hives Verified 09/12/16 20:21 Home Medications: Ambulatory Orders Albuterol Sulfate Inhaler - [Ventolin Hfa Inhaler -] 1 - 2 inh PO QID 05/06/18 Cyclobenzaprine HCl [Flexeril 10 mg] 10 mg PO DAILY PRN 05/06/18 Diclofenac Sodium 75 mg PO DAILY 05/06/18 Omeprazole 20 mg PO DAILY 05/06/18 Fluconazole 150 mg PO ASDIR #3 tablet 08/31/18 Anemia: No Asthma: Yes Cancer: No (SEEING ONCOLOGY FOR + CANCER GENE) Cardiac Disorders: No CVA: No COPD: No CHF: No Dementia: No Diabetes: No GI Disorders: Yes (ACID REFLUX,HIATAL HERNIA) Disorders: No HTN: No Hypercholesterolemia: No Liver Disease: No Psychiatric Problems: Yes (PTSD) Seizures: No Thyroid Disease: No - Surgical History Abdominal Surgery: Yes (abdominoplasty 1997) Appendectomy: No Cardiac Surgery: No Cholecystectomy: No Lung Surgery: No Neurologic Surgery: No Orthopedic Surgery: Yes (ARTHROSCOPY RIGHT KNEE) - Immunization History Immunization Up to Date: Yes - Suicide/Smoking/Psychosocial Hx Smoking History: Current every day smoker Have you smoked in the past 12 months: Yes Number of Cigarettes Smoked Daily: 2 Cigars Per Day: 0 Information on smoking cessation initiated: No 'Breaking Loose' booklet given: 05/06/18 Hx Alcohol Use: No Drug/Substance Use Hx: No Substance Use Type: None Hx Substance Use Treatment: No *Physical Exam - Vital Signs Last Vital Signs Temp Pulse Resp BP Pulse Ox 98.5 F 68 18 131/79 100 08/31/18 08:09 08/31/18 08:09 08/31/18 08:09 08/31/18 08:09 08/31/18 08:09 ED Treatment Course - LABORATORY CBC & Chemistry Diagram: 08/31/18 09:10 08/31/18 09:10 *DC/Admit/Observation/Transfer Diagnosis at time of Disposition: Yeast infection Ovarian cyst Qualifiers: Laterality: left Qualified Code(s): N83.202 - Unspecified ovarian cyst, left side - Discharge Dispostion Disposition: HOME Condition at time of disposition: Stable Decision to Admit order: No - Referrals Referrals: Linda Keene DO [Staff Physician] - - Patient Instructions Printed Discharge Instructions: DI for Ovarian Cyst, DI for Vaginal Yeast Infection Additional Instructions: You were evaluated today for your vaginal pain You have a yeast infection Take the fluconazole as directed You also have ovarian cysts; your report is attached. Please follow up with Dr. Keene as soon as possible Return to the ED for worsening pain, fever, lightheadedness or if you have any changes in your symptoms - Post Discharge Activity Forms/Work/School Notes: Back to Work
[2018-08-31 09:22] LABS: BASO % 0.8 % (0-2.0); EOS % 1.8 % (0-4.5); HEMATOCRIT 40.4 % (32.4-45.2); HEMOGLOBIN 13.4 GM/dL (10.7-15.3); LYMPH % 31.8 % (8-40); MCH 30.6 pg (25.7-33.7); MCHC 33.2 g/dl (32.0-36.0); MEAN CELL VOLUME 91.9 fl (80-96); MEAN PLT VOLUME 8.9 fl (7.5-11.1); MONO % 7.1 % (3.8-10.2); NEUT % 58.5 % (42.8-82.8); PLATELET COUNT 247 K/MM3 (134-434); RBC 4.39 M/mm3 (3.60-5.2); RDW 14.2 % (11.6-15.6); WHITE BLOOD COUNT 7.2 K/mm3 (4.0-10.0)
[2018-08-31 09:55] LABS: INR 0.92 (0.83-1.09); PROTHROMBIN TIME (PATIENT) 10.9 SEC (9.7-13.0)
[2018-08-31 09:57] LABS: ALBUMIN 3.6 g/dl (3.4-5.0); ALK PHOS 63 U/L (45-117); ANION GAP 9 MMOL/L (8-16); BILIRUBIN,TOTAL 0.2 mg/dL (0.2-1); BLOOD UREA NITROGEN 10 mg/dL (7-18); CALCIUM 9.2 mg/dL (8.5-10.1); CHLORIDE 108 mmol/L (98-107); CO2 24 mmol/L (21-32); CREATININE 0.8 mg/dL (0.55-1.3); GLUCOSE,RANDOM 96 mg/dL (74-106); POTASSIUM 4.4 mmol/L (3.5-5.1); SGOT/AST 17 U/L (15-37); SGPT/ALT 32 U/L (13-61); SODIUM 141 mmol/L (136-145); TOT PROT 6.5 g/dl (6.4-8.2)
[2018-08-31] MEDS ORDERED: SODIUM CHLORIDE 1,000 ML IV STA (10:04)
--- NOTE | 2018-08-31 10:38 | PDOC ---
*Physical Exam - Vital Signs Last Vital Signs Temp Pulse Resp BP Pulse Ox 98.5 F 68 18 131/79 100 08/31/18 08:09 08/31/18 08:09 08/31/18 08:09 08/31/18 08:09 08/31/18 08:09 ED Treatment Course - LABORATORY CBC & Chemistry Diagram: 08/31/18 09:10 08/31/18 09:10 - ADDITIONAL ORDERS Additional order review: Laboratory Results 08/31/18 08/31/18 08/31/18 09:10 09:10 09:10 PT with INR 10.90 INR 0.92 Sodium 141 Potassium 4.4 Chloride 108 H Carbon Dioxide 24 Anion Gap 9 BUN 10 Creatinine 0.8 Creat Clearance w eGFR 80.27 Random Glucose 96 Calcium 9.2 Total Bilirubin 0.2 AST 17 ALT 32 Alkaline Phosphatase 63 Total Protein 6.5 Albumin 3.6 Urine Color Urine Appearance Urine pH Ur Specific [place] Urine Protein Urine Glucose (UA) Urine Ketones Urine Blood Urine Nitrite Urine Bilirubin Urine Urobilinogen Ur Leukocyte Esterase Blood Type O POSITIVE Antibody Screen Negative 08/31/18 08:33 PT with INR INR Sodium Potassium Chloride Carbon Dioxide Anion Gap BUN Creatinine Creat Clearance w eGFR Random Glucose Calcium Total Bilirubin AST ALT Alkaline Phosphatase Total Protein Albumin Urine Color Dk yellow Urine Appearance Turbid Urine pH 5.0 Ur Specific [place] 1.030 Urine Protein Negative Urine Glucose (UA) Negative Urine Ketones Trace H Urine Blood Negative Urine Nitrite Negative Urine Bilirubin Negative Urine Urobilinogen 1.0 Ur Leukocyte Esterase Negative Blood Type Antibody Screen 08/31/18 09:10 RBC 4.39 MCV 91.9 MCHC 33.2 RDW 14.2 MPV 8.9 Neutrophils % 58.5 Lymphocytes % 31.8 Monocytes % 7.1 Eosinophils % 1.8 Basophils % 0.8 Medical Decision Making - Medical Decision Making 08/31/18 10:36 Patient seen and evaluated with the nurse practitioner. I agree with the overall evaluation, assessment, and management with the following summary of visit: 37-year-old female presents with abdominal/vaginal complaints, significant candidiasis on exam. Culture sent, will treat empirically Transvaginal ultrasound Disposition accordingly *DC/Admit/Observation/Transfer - Discharge Dispostion Condition at time of disposition: Stable - Referrals Referrals: Bryce Pearl [Primary Care Provider] - - Patient Instructions - Post Discharge Activity
[2018-08-31] MEDS ORDERED: ACETAMINOPHEN 1000 MG/100 ML VIAL (NON FORMULARY) IVPB ONE (11:31)
[2018-08-31] MEDS ORDERED: DIPHTH,PERTUSS(ACELL),TET PED 0.5 ML VIAL IM ONE (11:46)
[2018-08-31] MEDS ORDERED: ACETAMINOPHEN INJECTION 100 ML IVPB ONE (11:48)
[2018-08-31 12:46] VITALS: BP 116/75; PULSE 92
== END 2018-08-31 13:01 | disposition home or self-care (01) ==
LOC: JER 08:00
PROC: 3E0337Z Introduction of Electrolytic and Water Balance Substance into Peripheral Vein, Percutaneous Approach (ICD-10-PCS; principal; 2018-08-31)
PROC: 3E033NZ Introduction of Analgesics, Hypnotics, Sedatives into Peripheral Vein, Percutaneous Approach (ICD-10-PCS; 2018-08-31)
DX: B37.3 Candidiasis of vulva and vagina (principal); N83.202 Unspecified ovarian cyst, left side
CPT/HCPCS: 36415; 76830-TC; 80053; 81003; 85025; 85610; 86850; 86900; 86901; 87070; 87086; 87205; 87491; 87591; 96361; 96374; 99284-25; J0131; J7030

== ENCOUNTER 2018-09-03 08:27 | Day surgery (SDC) | payer OTHER ==
[2018-09-03] MEDS ORDERED: KETOROLAC TROMETHAMINE 30 MG/1 ML VIAL IVPUSH STA (09:19)
[2018-09-03] MEDS ORDERED: SODIUM CHLORIDE 1,000 ML IV STA (09:19)
[2018-09-03 10:15] LABS: PH,URINE 5.5 (5.0-8.0); URINE APPEARANCE CLEAR; URINE BILIRUBIN NEGATIVE (NEGATIVE); URINE COLOR YELLOW; URINE GLUCOSE (UA) NEGATIVE (NEGATIVE); URINE KETONE NEGATIVE (NEGATIVE); URINE LEUK ESTERASE NEGATIVE (NEGATIVE); URINE NITRITE NEGATIVE (NEGATIVE); URINE PROTEIN NEGATIVE (NEGATIVE); URINE UROBILINOGEN 0.2 mg/dL (0.2-1.0)
[2018-09-03] MEDS ORDERED: KETOROLAC TROMETHAMINE 30 MG/1 ML VIAL ONE ×2 (11:12→15:29)
--- NOTE | 2018-09-03 11:12 | PDOC ---
History of Present Illness - General Chief Complaint: Pain, Acute Stated Complaint: ABD PAIN Time Seen by Provider: 09/03/18 09:18 History Source: Patient Exam Limitations: No Limitations - History of Present Illness Travel History: No Initial Comments: 09/03/18 10:53 37 y/o female presents to the ED Past History - Past Medical History Allergies/Adverse Reactions: Allergies Allergy/AdvReac Type Severity Reaction Status Date / Time aspirin Allergy Mild Hives Verified 09/03/18 08:45 Home Medications: Ambulatory Orders Albuterol Sulfate Inhaler - [Ventolin Hfa Inhaler -] 1 - 2 inh PO QID 05/06/18 Cyclobenzaprine HCl [Flexeril 10 mg] 10 mg PO DAILY PRN 05/06/18 Diclofenac Sodium 75 mg PO DAILY 05/06/18 Omeprazole 20 mg PO DAILY 05/06/18 Fluconazole 150 mg PO ASDIR #3 tablet 08/31/18 Anemia: No Asthma: Yes Cancer: No (SEEING ONCOLOGY FOR + CANCER GENE) Cardiac Disorders: No CVA: No COPD: No CHF: No Dementia: No Diabetes: No GI Disorders: Yes (ACID REFLUX,HIATAL HERNIA) Disorders: No HTN: No Hypercholesterolemia: No Liver Disease: No Psychiatric Problems: Yes (PTSD) Seizures: No Thyroid Disease: No Other medical history: OVARIAN TORSION - Surgical History Abdominal Surgery: Yes (abdominoplasty 1997) Appendectomy: No Cardiac Surgery: No Cholecystectomy: No Lung Surgery: No Neurologic Surgery: No Orthopedic Surgery: Yes (ARTHROSCOPY RIGHT KNEE) - Immunization History Immunization Up to Date: Yes - Suicide/Smoking/Psychosocial Hx Smoking History: Never smoked Have you smoked in the past 12 months: Yes Number of Cigarettes Smoked Daily: 2 Cigars Per Day: 0 'Breaking Loose' booklet given: 05/06/18 Hx Alcohol Use: No Drug/Substance Use Hx: No Substance Use Type: None Hx Substance Use Treatment: No *Physical Exam - Vital Signs Last Vital Signs Temp Pulse Resp BP Pulse Ox 98.1 F 73 18 129/73 100 09/03/18 08:47 09/03/18 08:47 09/03/18 08:47 09/03/18 08:47 09/03/18 08:47 ED Treatment Course - ADDITIONAL ORDERS Additional order review: Laboratory Results 09/03/18 09:54 Urine Color Yellow Urine Appearance Clear Urine pH 5.5 Ur Specific [place] 1.009 L Urine Protein Negative Urine Glucose (UA) Negative Urine Ketones Negative Urine Blood Negative Urine Nitrite Negative Urine Bilirubin Negative Urine Urobilinogen 0.2 Ur Leukocyte Esterase Negative *DC/Admit/Observation/Transfer Diagnosis at time of Disposition: Complex cyst of left ovary - Discharge Dispostion Decision to Admit order: Yes - Referrals Referrals: Bryce Pearl [Primary Care Provider] - - Patient Instructions - Post Discharge Activity
--- NOTE | 2018-09-03 11:24 | PDOC ---
History of Present Illness - General Chief Complaint: Pain, Acute Stated Complaint: ABD PAIN Time Seen by Provider: 09/03/18 09:18 History Source: Patient Exam Limitations: No Limitations - History of Present Illness Travel History: No Initial Comments: 09/03/18 11:15 37 y/o female presents to the ED with c/o worsening left suprapubic pain over the past few weeks. Pt states is pending an oopherectomy to be performed by Dr. Keene next week secondary to complex cysts to the left ovary. Pt denies vaginal discharge, vag bleeding, n/v /d fever, or urinary complaints. Timing/Duration: reports: getting worse Quality: reports: moderate, cramping, sharpness Abdominal Pain Onset Location: reports: suprapubic (left) Pain Radiation: reports: no radiation Activities at Onset: reports: none Aggravating Factors: improves with: Movement Alleviating Factors: improves with: None Past History - Travel Traveled outside of the country in the last 30 days: No Close contact w/someone who was outside of country & ill: No - Past Medical History Allergies/Adverse Reactions: Allergies Allergy/AdvReac Type Severity Reaction Status Date / Time aspirin Allergy Mild Hives Verified 09/03/18 08:45 Home Medications: Ambulatory Orders Albuterol Sulfate Inhaler - [Ventolin Hfa Inhaler -] 1 - 2 inh PO QID 05/06/18 Cyclobenzaprine HCl [Flexeril 10 mg] 10 mg PO DAILY PRN 05/06/18 Diclofenac Sodium 75 mg PO DAILY 05/06/18 Omeprazole 20 mg PO DAILY 05/06/18 Fluconazole 150 mg PO ASDIR #3 tablet 08/31/18 Anemia: No Asthma: Yes Cancer: No (SEEING ONCOLOGY FOR + CANCER GENE) Cardiac Disorders: No CVA: No COPD: No CHF: No Dementia: No Diabetes: No GI Disorders: Yes (ACID REFLUX,HIATAL HERNIA) Disorders: No HTN: No Hypercholesterolemia: No Liver Disease: No Psychiatric Problems: Yes (PTSD) Seizures: No Thyroid Disease: No Other medical history: OVARIAN TORSION - Surgical History Abdominal Surgery: Yes (abdominoplasty 1997) Appendectomy: No Cardiac Surgery: No Cholecystectomy: No Lung Surgery: No Neurologic Surgery: No Orthopedic Surgery: Yes (ARTHROSCOPY RIGHT KNEE) - Immunization History Immunization Up to Date: Yes - Suicide/Smoking/Psychosocial Hx Smoking History: Never smoked Have you smoked in the past 12 months: Yes Number of Cigarettes Smoked Daily: 2 Cigars Per Day: 0 'Breaking Loose' booklet given: 05/06/18 Hx Alcohol Use: No Drug/Substance Use Hx: No Substance Use Type: None Hx Substance Use Treatment: No Patient Lives Alone: No Lives with/in: spouse/SO Review of Systems - Review of Systems Able to Perform ROS?: No Is the patient limited Albanian proficient: No Constitutional: No: Symptoms Reported HEENTM: No: Symptoms Reported Respiratory: No: Symptoms reported Cardiac (ROS): No: Symptoms Reported ABD/GI: Yes: Abdominal cramping : No: Symptoms Reported Musculoskeletal: No: Symptoms Reported Integumentary: No: Symptoms Reported Neurological: No: Symptoms reported Endocrine: No: Symptoms Reported Hematologic/Lymphatic: No: Symptoms Reported *Physical Exam - Vital Signs Last Vital Signs Temp Pulse Resp BP Pulse Ox 98.1 F 73 18 129/73 100 09/03/18 08:47 09/03/18 08:47 09/03/18 08:47 09/03/18 08:47 09/03/18 08:47 - Physical Exam General Appearance: Yes: Nourished, Appropriately Dressed. No: Apparent Distress HEENT: negative: Pale Conjunctivae Neck: positive: Normal Thyroid, Supple Respiratory/Chest: positive: Lungs Clear, Normal Breath Sounds. negative: Respiratory Distress, Accessory Muscle Use Cardiovascular: positive: Regular Rhythm, Regular Rate. negative: Murmur Gastrointestinal/Abdominal: positive: Normal Bowel Sounds, Soft, Tenderness ( left suprapubic tenderness). negative: Distended, Guarding, Rebound Musculoskeletal: negative: CVA Tenderness Integumentary: positive: Normal Color, Warm, Moist Neurologic: positive: Motor Strength 5/5 (ambulatory) Heart Score/ECG Review - ECG Intrepretation Rhythm: Regular Rhythm (sinus carmen 56, no st elevation/depression) ED Treatment Course - ADDITIONAL ORDERS Additional order review: Laboratory Results 09/03/18 09:54 Urine Color Yellow Urine Appearance Clear Urine pH 5.5 Ur Specific [place] 1.009 L Urine Protein Negative Urine Glucose (UA) Negative Urine Ketones Negative Urine Blood Negative Urine Nitrite Negative Urine Bilirubin Negative Urine Urobilinogen 0.2 Ur Leukocyte Esterase Negative Medical Decision Making - Medical Decision Making 09/03/18 10:22 CC: left ovarian pain, hx complex cyst, pending sx by Dr. Keene Exam: left suprapubic tenderness, vss Plan: ua, iv, fluids, and toradol 09/03/18 11:53 Laboratory Tests 09/03/18 09:54 Ur Specific [place] 1.009 L Urine Ketones Negative Urine Blood Negative Urine Bilirubin Negative Ur Leukocyte Esterase Negative Called and spoke to DR. Keene who will do sx today a t 1pm. Pt made NPO and EKG ordered. Pre op labs done yesterday 09/03/18 13:22 Called the OR and states approx 1/2 hr- 1hr before tech escorts pt to the OR. *DC/Admit/Observation/Transfer Diagnosis at time of Disposition: Complex cyst of left ovary - Discharge Dispostion Decision to Admit order Date/Time: Decision to Admit Order Category Date Time Status Decision to Admit to Hospital Routine Admission 09/03/18 11:13 Ordered - Referrals - Patient Instructions - Post Discharge Activity
--- NOTE | 2018-09-03 11:50 | HP ---
Admitting History and Physical - Admission Chief Complaint: pelvic pain History of Present Illness: 37 y/o female with PMH of asthma, osteomas, GERD, recent sinus surgery, h/o TLH in 2015 and h/o ovarian torsion in 2018 presents with worsening pelvic pain. Was seen last year in ED with same issue, had rupture hemorrhagic cyst and ovarian torsion resulting in right oophorectomy. Pt had pelvic pain starting , was seen here and ultrasound showed two cysts, largest about 3cm with total ovarian size 6cm. At that time pain was tolerable and plan was made to do ovarian cystectomy vs. oophorectomy as outpatient. Pt states pain has worsened and returned to ER this a.m. - Past Medical History Pulmonary: Yes: Asthma Gastrointestinal: Yes: GERD. No: Cancer, Pancreatitis ...LMP: 02/27/15 Psych: Yes: Other (PTSD) Musculoskeletal: Yes: Other (history of lower back lipomas - surgically removed history of right knee surgery) Rheumatology: Yes: Fibromyalgia - Past Surgical History Past Surgical History: Yes: Breast Biopsy, , Cystectomy (ovarian), Hysterectomy, Tubal Ligation (salpingectomy) Additional Past Surgical History: right oophorectomy knee arthroscopy sinus surgery 2019 - Smoking History Smoking history: Never smoked Have you smoked in the past 12 months: Yes Aproximately how many cigarettes per day: 2 - Alcohol/Substance Use Hx Alcohol Use: No History of Substance Use: reports: Prescription (is prescribed tylenol with codeine for back pain) - Social History ADL: Independent History of Recent Travel: No Home Medications - Allergies Allergies/Adverse Reactions: Allergies Allergy/AdvReac Type Severity Reaction Status Date / Time aspirin Allergy Mild Hives Verified 09/03/18 08:45 - Home Medications Home Medications: Ambulatory Orders Albuterol Sulfate Inhaler - [Ventolin Hfa Inhaler -] 1 - 2 inh PO QID 05/06/18 Cyclobenzaprine HCl [Flexeril 10 mg] 10 mg PO DAILY PRN 05/06/18 RX: Diclofenac Sodium 75 mg PO DAILY 05/06/18 RX: Omeprazole 20 mg PO DAILY 05/06/18 RX: Fluconazole 150 mg PO ASDIR #3 tablet 08/31/18 Review of Systems - Review of Systems Constitutional: reports: No Symptoms Eyes: reports: No Symptoms HENT: reports: No Symptoms Neck: reports: No Symptoms Cardiovascular: reports: No Symptoms Respiratory: reports: No Symptoms Gastrointestinal: reports: Abdominal Pain Genitourinary: reports: Other (vaginal dicharge, currently being treated for candidiasis). denies: Vaginal Bleeding Breasts: reports: No Symptoms Reported Integumentary: reports: No Symptoms Neurological: reports: No Symptoms Endocrine: reports: No Symptoms Hematology/Lymphatic: reports: No Symptoms Psychiatric: reports: No Symptoms Physical Examination Vital Signs: Vital Signs Temperature 98.1 F 09/03/18 08:47 Pulse Rate 73 09/03/18 08:47 Respiratory Rate 18 09/03/18 08:47 Blood Pressure 129/73 09/03/18 08:47 O2 Sat by Pulse Oximetry (%) 100 09/03/18 08:47 Constitutional: Yes: Well Nourished, Calm, Mild Distress Eyes: Yes: Conjunctiva Clear HENT: Yes: Atraumatic Neck: Yes: Supple Cardiovascular: Yes: Regular Rate and Rhythm Gastrointestinal: Yes: Normal Bowel Sounds, Soft Problem List - Problems (1) Complex cyst of left ovary Code(s): N83.292 - OTHER OVARIAN CYST, LEFT SIDE (2) Abdominal pain Code(s): R10.9 - UNSPECIFIED ABDOMINAL PAIN Qualifiers: Abdominal location: generalized Qualified Code(s): R10.84 - Generalized abdominal pain Assessment/Plan 37 y/o with known left ovarian cyst and worsening abdominal/pelvic pain. Plan for laparoscopy and ovarian cystectomy vs. oophorectomy. Pt desires oohphorectomy, she is aware this will put her in surgical menopause. I discussed the case with the patient's oncologist as she has a strong family h/o breast cancer and was to start Tamoxifen prophylactically as of this week. She has not yet started Tamoxifen. Pt is aware that her breast surgeon does not recommend giving estrogen replacement for the menopausal symptoms she will likely experience after this surgery, pt is aware. Consents for the procedure signed today.
[2018-09-03] MEDS ORDERED: oxyCODONE HCL 5 MG TABLET PO PRN (14:17)
[2018-09-03] MEDS ORDERED: ONDANSETRON 4 MG/2 ML VIAL IVPUSH PRN (14:17)
[2018-09-03] MEDS ORDERED: MIDAZOLAM HCL 2 MG/2 ML SINGLE DOSE VIAL ONE (14:26)
[2018-09-03] MEDS ORDERED: SUCCINYLCHOLINE CHLORIDE 200 MG/10 ML VIAL ONE (14:27)
[2018-09-03] MEDS ORDERED: ROCURONIUM BROMIDE 50 MG/5 ML VIAL ONE (14:27)
[2018-09-03] MEDS ORDERED: PROPOFOL 20 ML ONE (14:28)
[2018-09-03] MEDS ORDERED: LIDOCAINE HCL/PF 2% SDV 5ML VIAL ONE (14:28)
[2018-09-03] MEDS ORDERED: LACTATED RINGERS SOLUTION 1,000 ML IV SCH (14:30)
[2018-09-03] MEDS ORDERED: CYCLOBENZAPRINE HCL 10 MG TABLET (FP) PO PRN (14:45)
[2018-09-03] MEDS ORDERED: DEXAMETHASONE SOD PHOSPHATE 4 MG/1 ML VIAL ONE (15:17)
[2018-09-03] MEDS ORDERED: NEOSTIGMINE METHYLSULFATE 0.5 MG/ML - 10 ML MDV ONE (15:18)
--- NOTE | 2018-09-03 16:23 | OP ---
Operative Note - Note: Operative Date: 09/03/18 Pre-Operative Diagnosis: Left ovarian cyst, abd pain Operation: Laprascopic LEFT oopharectomy Post-Operative Diagnosis: Same as Pre-op Surgeon: Linda Keene Clinical Laboratory Assistant: Fermín Garibay Anesthesiologist/PIE CRIMPING MACHINE OPERATOR: Ewelina Tucker Anesthesia: General Specimens Removed: Left ovary Estimated Blood Loss (mls): 20 Fluid Volume Replaced (mls): 800 Operative Report Dictated: Yes
--- NOTE | 2018-09-03 16:24 | SURG ---
Surgery Ms Sql Developer Note Ms Sql Developer: Fermín Garibay PA-C Date of Service: 09/03/18 Diagnosis: Left ovarian cyst Procedure: Laprascopic left oopharectomy I was present for the entirety of the operative procedure. For further detail, please refer to operative report. Visit type - Case Type Case Type: ED Admission - Emergency Emergency Visit: Yes Care time: The patient presented to the Emergency Department on the above date and was hospitalized for further evaluation of their emergent condition. - New patient This patient is new to me today: Yes Date on this admission: 09/03/18
[2018-09-03] MEDS: ACETAMINOPHEN 1000 MG/100 ML VIAL (NON FORMULARY) IVPB ONE ×2 (16:30→22:35)
[2018-09-03] MEDS ORDERED: ACETAMINOPHEN INJECTION 100 ML IVPB ONE (16:40)
[2018-09-03] MEDS ORDERED: ePHEDrine SULFATE 50 MG/1 ML AMPULE ONE (18:02)
[2018-09-03] MEDS: oxyCODONE HCL 5 MG TABLET PO PRN ×2 (18:41→19:12)
[2018-09-03 18:50] VITALS: BMI 31.7
[2018-09-03] MEDS: ALBUTEROL SO4 8 GM HFA INHALER IH SCH ×5 (19:23→22:27)
--- NOTE | 2018-09-03 20:44 | PN ---
Progress Note, Physician Chief Complaint: Pt seen/examined, doing well. Having some right sided pain where larger incision was placed, otherwise no issues. Tolerating diet, ambulating to bathroom. No n/v. NO fevers/chills. - Current Medication List Current Medications: Active Medications Albuterol Sulfate (Ventolin Hfa Inhaler -) 2 puff [facility] RQID [facility] Cyclobenzaprine HCl (Flexeril -) 10 mg PO ONCE ONE Stop: 09/03/18 21:01 Diclofenac Sodium (Voltaren -) 75 mg PO DAILY [facility] Hydromorphone HCl (Dilaudid Vial -) 2 mg IVPB Q4H PRN PRN Reason: PAIN LEVEL 6-10 Lactated Ringer's (Lactated Ringers Solution) 1,000 mls @ 125 mls/hr IV ASDIR [facility] Ondansetron HCl (Zofran Injection) 4 mg IVPUSH Q6H PRN PRN Reason: NAUSEA AND/OR VOMITING Oxycodone HCl (Roxicodone -) 5 mg PO Q4H PRN PRN Reason: PAIN LEVEL 1-5 Stop: 09/04/18 14:16 Last Admin: 09/03/18 19:12 Dose: 5 mg Oxycodone HCl (Roxicodone -) 10 mg PO Q4H PRN PRN Reason: PAIN LEVEL 6-10 Stop: 09/04/18 14:16 Pantoprazole Sodium (Protonix -) 20 mg PO DAILY [facility] - Objective Vital Signs: Vital Signs Temperature 98.2 F 09/03/18 19:15 Pulse Rate 72 09/03/18 19:15 Respiratory Rate 20 09/03/18 19:15 Blood Pressure 111/85 09/03/18 19:15 O2 Sat by Pulse Oximetry (%) 100 09/03/18 19:15 Constitutional: Yes: Well Nourished, No Distress, Calm HENT: Yes: Atraumatic Neck: Yes: Supple Cardiovascular: Yes: Regular Rate and Rhythm Respiratory: Yes: Regular Gastrointestinal: Yes: Soft Extremities: Yes: WNL Wound/Incision: Yes: Clean/Dry, Well Approximated Neurological: Yes: Alert, Oriented Psychiatric: Yes: Alert, Oriented Problem List - Problems (1) Complex cyst of left ovary Code(s): N83.292 - OTHER OVARIAN CYST, LEFT SIDE (2) Abdominal pain Code(s): R10.9 - UNSPECIFIED ABDOMINAL PAIN Qualifiers: Abdominal location: generalized Qualified Code(s): R10.84 - Generalized abdominal pain Assessment/Plan 37 y/o POD#0 s/p laparoscopic left oophorectomy for ovarian cysts and pelvic pain doing well for pain control with IV/PO advance diet as tolerated plan for d/c home in a.m.
[2018-09-03] MEDS ORDERED: CYCLOBENZAPRINE HCL 10 MG TABLET (FP) PO ONE (21:00)
[2018-09-03] MEDS: HYDROmorphone HCl 2 MG/ML VIAL IVPB PRN (23:53)
[2018-09-04] MEDS: HYDROmorphone HCl 2 MG/ML VIAL IVPB PRN (03:59)
--- NOTE | 2018-09-04 07:30 | OP ---
DATE OF OPERATION: 09/03/2018 PREOPERATIVE DIAGNOSES: Left ovarian cyst and pelvic pain. POSTOPERATIVE DIAGNOSES: Left ovarian cyst and pelvic pain. PROCEDURE: Laparoscopic left oophorectomy. SURGEON: Linda Keene DO ELECTRICAL DESIGNER DRAFTER: JIGAR Merchant ANESTHESIA: General by Dr. Ewelina Tucker. ESTIMATED BLOOD LOSS: 5 mL. COMPLICATIONS: None. COUNTS: Sponge and instrument count correct. DISPOSITION: Stable to PACU. BRIEF HISTORY AND PROCEDURE: Patient is a 37-year-old female who was in the emergency department with complaints of pelvic pain. Had a known left ovarian cyst. The patient was scheduled for a laparoscopic left oophorectomy which the patient signed consent for on the afternoon of September 03, 2018. She was then taken back to the operating room, given general anesthesia and placed in the dorsal supine position. Paul catheter was placed under sterile conditions. A 5-mm skin incision was created in the umbilicus and a Veress needle was placed intraabdominally. The abdomen was insufflated with CO2 gas. The 5-mm trocar was inserted under direct visualization using the Visiport trocar and the camera was then placed intraabdominally. After confirmation of intraperitoneal placement a left 5-mm lower quadrant port was placed and a right 11-mm lower quadrant port was placed under direct visualization. The left ovary was identified. No ovarian torsion was appreciated. The ovary was elevated and the infundibulopelvic ligament was cauterized, cut and divided with the LigaSure device in several passes right at the base of the ovary taking care to avoid the left ureter. The EndoCatch bag was placed through the right lower quadrant port and the ovary was placed inside the bag and the bag was removed through the right lower quadrant incision along with the specimen which was intact and sent to Pathology for permanent evaluation. Examination of the intraabdominal contents revealed no other intraabdominal pathology and excellent hemostasis at the surgical site. The right lower quadrant port was closed with 2 interrupted 0 Vicryl sutures using the Ernesto-Brandon device. The subcutaneous tissue in that incision was reapproximated using 4-0 Biosyn and the skin was reapproximated in a subcuticular fashion using 4-0 Biosyn. The other trocars were removed after desufflation of the abdomen and the skin was reapproximated using 4-0 Biosyn and skin glue. The patient was awokeen from anesthesia, recovering in stable condition after the procedure. The Paul catheter was removed. Sponge, needle and instrument count was reported to be correct. Patient tolerated the procedure well, was recovering in stable condition in the PACU. LINDA KEENE DO /[id number] MTDD
[2018-09-04] MEDS ORDERED: FLUCONAZOLE 150 MG TABLET PO ONE (08:00)
[2018-09-04] MEDS: ACETAMINOPHEN WITH CODEINE 300MG/30MG TABLET PO PRN ×2 (08:39→12:05)
[2018-09-04 09:23] VITALS: BP 132/76; PULSE 76; TEMP 98.5
[2018-09-04] MEDS ORDERED: DICLOFENAC SODIUM 75 MG TABLET.DR PO SCH (10:00)
[2018-09-04] MEDS ORDERED: PANTOPRAZOLE 20 MG TABLET (FP) PO SCH (10:00)
--- NOTE | 2018-09-04 12:20 | PN ---
Progress Note (short form) - Note Progress Note: Anesthesia post op note, POD#1. S/P Lap left oopherectomy under GA, VSS, Ambulating, No apparent post anesthesia complicatins.
--- NOTE | 2018-09-08 11:49 | PATH ---
Surgical Pathology Report Patient Name: VENITA BURKETT Med. Rec. #: [id number] /Age/Gender: 1980 (Age: 37) / F Account: [id number] Location: AMBULATORY SURG Taken: 09/03/2018 Received: 09/06/2018 Reported: 09/08/2018 Physicians: Linda Keene M.D. PHYSICIAN EMERGENCY DEPT Specimen(s) Received LEFT OVARY Clinical History Complex cyst of left ovary Final Diagnosis LEFT OVARY, OOPHORECTOMY: OVARIAN TISSUE WITH HEMORRHAGIC CORPUS LUTEUM CYST. FOCAL REACTIVE FOREIGN BODY TYPE MULTINUCLEATED GIANT CELLS PRESENT, SEE COMMENT. Comment: Prior surgical history is noted. Electronically Signed Page Hodges M.D. Gross Description Received in formalin labeled "left ovary," are 2 mcduffie mock portions of soft tissue measuring 3.2 x 2.7 x 2.0 cm and 4.7 x 1.8 x 1.5 cm, consistent with portions of a disrupted cyst. Sectioning of one of the portions displays a hemorrhagic corpus luteum. Nurse Office sections are submitted in 5 cassettes. /09/06/2018 [facility]/09/06/2018
== END 2018-09-04 13:30 | disposition home or self-care (01) ==
LOC: JER 08:27 → JASUSAT 11:13 → J3W 17:47 → JASUSAT 09-04 13:30
PROVIDERS: ATTEND Obstetrics & Gynecology
PROC: 0UT14ZZ Resection of Left Ovary, Percutaneous Endoscopic Approach (ICD-10-PCS; principal; 2018-09-03 13:00)
DX: N83.202 Unspecified ovarian cyst, left side (principal)
CPT/HCPCS: 81003; 88305-TC; 94760; 99285-25; J0131; J7030

== ENCOUNTER 2018-09-06 10:55 | Emergency (ER) | payer OTHER ==
[2018-09-06 11:15] VITALS: BP 128/82; PULSE 67; TEMP 98; BMI 31.7
--- NOTE | 2018-09-06 11:26 | PDOC ---
History of Present Illness - General Chief Complaint: Pain Stated Complaint: HEMATOMA Time Seen by Provider: 09/06/18 11:22 - History of Present Illness Initial Comments: 09/06/18 11:24 37 y/o female with PMH of asthma, osteomas, GERD, recent sinus surgery, h/o TLH in 2015 and h/o R ovarian torsion in 2018 and oppphorectomy, and left oophorectomy 3 days ago due to cyst-related pain. . Reports rlq pain and tissue swelling over the rlq surgical site. Yesterday, she called Dr. Keene, her OBGYN who did the surgery and set a follow up appointment for Thursday but states that she couldn't bear the pain anymore. Denies any bm since the surgery but no dysuria, fever or chills. States that last year after her right sided surgery she had a small hematoma that had to be drained post surgically as well and she feels like this is the same problem. Past History - Past Medical History Allergies/Adverse Reactions: Allergies Allergy/AdvReac Type Severity Reaction Status Date / Time aspirin Allergy Mild Hives Verified 09/03/18 08:45 Home Medications: Ambulatory Orders Albuterol Sulfate Inhaler - [Ventolin Hfa Inhaler -] 1 - 2 inh PO QID 05/06/18 Cyclobenzaprine HCl [Flexeril 10 mg] 10 mg PO DAILY PRN 05/06/18 Diclofenac Sodium 75 mg PO DAILY 05/06/18 Omeprazole 20 mg PO DAILY 05/06/18 Fluconazole 150 mg PO ASDIR #3 tablet 08/31/18 Acetaminophen W/ Codeine #3 [Tylenol # 3 -] 1 tab PO Q4H PRN #20 tablet MDD 6 Cephalexin Monohydrate [Keflex -] 500 mg PO BID #14 capsule 09/04/18 Valacyclovir HCl [Valtrex -] 1,000 mg PO DAILY #30 tablet 09/04/18 Polyethylene Glycol 3350 [Miralax (For Bowel Prep) -] 17 gm PO DAILY #7 bottle 09/06/18 Anemia: No Asthma: Yes Cancer: No (SEEING ONCOLOGY FOR + CANCER GENE) Cardiac Disorders: No CVA: No COPD: No CHF: No Dementia: No Diabetes: No GI Disorders: Yes (ACID REFLUX,HIATAL HERNIA) Disorders: No HTN: No Hypercholesterolemia: No Liver Disease: No Psychiatric Problems: Yes (PTSD) Seizures: No Thyroid Disease: No - Surgical History Abdominal Surgery: Yes (abdominoplasty 1997, apr 2018 right ovarian cystectomy) Appendectomy: No Cardiac Surgery: No Cholecystectomy: No Lung Surgery: No Neurologic Surgery: No Orthopedic Surgery: Yes (ARTHROSCOPY RIGHT KNEE) - Immunization History Immunization Up to Date: Yes - Suicide/Smoking/Psychosocial Hx Smoking History: Never smoked Have you smoked in the past 12 months: Yes Number of Cigarettes Smoked Daily: 2 Cigars Per Day: 0 'Breaking Loose' booklet given: 05/06/18 Hx Alcohol Use: No Drug/Substance Use Hx: No Substance Use Type: None Hx Substance Use Treatment: No Review of Systems - Review of Systems Able to Perform ROS?: Yes Is the patient limited Turkish proficient: No Constitutional: No: Symptoms Reported HEENTM: No: Symptoms Reported Respiratory: No: Symptoms reported Cardiac (ROS): No: Symptoms Reported ABD/GI: Yes: See HPI, Constipated : No: Symptoms Reported Musculoskeletal: No: Symptoms Reported All Other Systems: Reviewed and Negative *Physical Exam - Vital Signs Last Vital Signs Temp Pulse Resp BP Pulse Ox 98.0 F 67 17 128/82 98 09/06/18 11:10 09/06/18 11:10 09/06/18 11:10 09/06/18 11:10 09/06/18 11:10 - Physical Exam General Appearance: Yes: Nourished, Appropriately Dressed. No: Apparent Distress HEENT: positive: EOMI, JULIO, Normal ENT Inspection Respiratory/Chest: positive: Lungs Clear, Normal Breath Sounds. negative: Chest Tender, Respiratory Distress Cardiovascular: positive: Regular Rhythm, Regular Rate, S1, S2 Gastrointestinal/Abdominal: positive: Normal Bowel Sounds, Tender (RLQ swelling and erythema with tenderness over the laparoscopic site), Flat Musculoskeletal: positive: Normal Inspection. negative: CVA Tenderness Extremity: positive: Normal Capillary Refill, Normal Inspection, Normal Range of Motion Neurologic: positive: Fully Oriented, Alert, Normal Mood/Affect, Normal Response , Motor Strength 5/5 ED Treatment Course - LABORATORY CBC & Chemistry Diagram: 09/06/18 11:52 09/06/18 11:52 Medical Decision Making - Medical Decision Making 09/06/18 12:[address] Keene who advised getting a Ct abdomen and based on the results she will decide whether or not a emergent procedure is required or if she can see the patient tomorrow in the office instead. Will obtain labs ct, pain control and reassess. 09/06/18 12:35 Fast performed by ultrasound team Drs. Alan and Ania: negative for free fluids. No hematoma over surgical site. Ct pending. 09/06/18 15:09 CT read: some free pelvic fluid, lots of stool in the colon. Spoke with Dr.. Keene. Give patient miralax prescription and discharge home. Can follow with Dr. Keene in her office anytime all week. *DC/Admit/Observation/Transfer Diagnosis at time of Disposition: Constipation - Discharge Dispostion Disposition: HOME Condition at time of disposition: Improved Decision to Admit order: No - Prescriptions Prescriptions: Polyethylene Glycol 3350 [Miralax (For Bowel Prep) -] 17 gm PO DAILY #7 bottle - Referrals Referrals: ON STAFF,NOT [Primary Care Provider] - Linda Keene DO [Staff Physician] - - Patient Instructions Printed Discharge Instructions: Increased Dietary Fiber May Improve Constipation Conditions With Pelvic Miguel, Constipation Additional Instructions: Come back to the emergency department for any new, worsening or concerning symptoms. Follow up at Dr. Keene's office anytime this week. supervising architect prescription at the pharmacy to help with your constipation. - Post Discharge Activity
[2018-09-06] MEDS ORDERED: ACETAMINOPHEN 1000 MG/100 ML VIAL (NON FORMULARY) IVPB ONE (12:12)
[2018-09-06] MEDS ORDERED: morphine CARPU-JECT 2 MG/1 ML DISP.SYRIN IVPUSH ONE (12:26)
[2018-09-06 12:27] LABS: BASO % 0.9 % (0-2.0); EOS % 5.3 % (0-4.5); HEMOGLOBIN 13.4 GM/dL (10.7-15.3); LYMPH % 32.3 % (8-40); MCH 30.9 pg (25.7-33.7); MCHC 33.6 g/dl (32.0-36.0); MEAN CELL VOLUME 91.7 fl (80-96); MEAN PLT VOLUME 9.5 fl (7.5-11.1); MONO % 8.2 % (3.8-10.2); NEUT % 53.3 % (42.8-82.8); PLATELET COUNT 219 K/MM3 (134-434); RBC 4.36 M/mm3 (3.60-5.2); RDW 14.1 % (11.6-15.6)
[2018-09-06 13:07] LABS: ALBUMIN 3.6 g/dl (3.4-5.0); ALK PHOS 65 U/L (45-117); ANION GAP 4 MMOL/L (8-16); BILIRUBIN,TOTAL 0.2 mg/dL (0.2-1); BLOOD UREA NITROGEN 13 mg/dL (7-18); CALCIUM 9.6 mg/dL (8.5-10.1); CHLORIDE 104 mmol/L (98-107); CO2 28 mmol/L (21-32); CREATININE 0.8 mg/dL (0.55-1.3); GLUCOSE,RANDOM 76 mg/dL (74-106); POTASSIUM 4.5 mmol/L (3.5-5.1); SGOT/AST 14 U/L (15-37); SGPT/ALT 27 U/L (13-61); SODIUM 137 mmol/L (136-145)
--- NOTE | 2018-09-06 13:15 | PDOC ---
Documentation entered by Capo Davis SCRIBE, acting as scribe for Uriel Otero MD. Uriel Otero MD: This documentation has been prepared by the Susan pickett Nirvannie, SCRIBE, under my direction and personally reviewed by me in its entirety. I confirm that the documentation accurately reflects all work, treatment, procedures, and medical decision making performed by me. Attending Attestation - Resident Resident Name: Jordi Euceda - ED Attending Attestation I have performed the following: I have examined & evaluated the patient, The case was reviewed & discussed with the resident, I agree w/resident's findings & plan - HPI HPI: 09/06/18 11:57 CC: RLQ. HPI: The patient is a 37 year old female, with a significant past medical history of asthma, osteomas, GERD, recent sinus surgery, h/o TLH in 2014 and h/o R ovarian torsion in 2018 and oophorectomy, and left oophorectomy 3 days ago ( secondary to cyst-related pain), who presents to the emergency department with, RLQ pain. She denies abnormal vaginal discharge or vaginal bleeding. Allergies: Aspirin. - Physicial Exam PE: 09/06/18 12:57 Vitals: Triage vital signs reviewed General Appearance: No acute distress, well nourished, well developed Head: Atraumatic Neck: Supple; No nuchal rigidity Chest Wall: Nontender Cardiac: Regular rate and rhythm, no murmurs, no rubs, no gallops Lungs: Clear to auscultation bilateral, good air movement bilaterally Abdomen: + 3 laparoscopic surgical scars without surrounding flatulence, cellulitis, or streaking. Soft, nondistended, normal bowel sounds, nontender to palpation Genitourinary: Exam deferred Rectal: Exam deferred Extremities: Full range of motion to all extremities, no cyanosis, clubbing, or edema Skin: Warm and dry, no rashes or lesions, no rash, no petechiae Neuro: AOX3; Cranial Nerves 2-12 grossly intact, Strength intact to all extremities, Sensation intact to all extremities, gait normal Psych: Normal mood, normal affect - Medical Decision Making 09/06/18 12:57 37 year old female, with a significant past medical history of asthma, osteomas , GERD, recent sinus surgery, h/o TLH in 2014 and h/o R ovarian torsion in 2018 and oophorectomy, and left oophorectomy 3 days ago (secondary to cyst-related pain), who presents to the emergency department with, RLQ pain. Plan is to: CT A&P Morphine CMP Tylenol Reassess 09/06/18 17:43 CAT scan demonstrates no acute findings. CT results discussed with patient's surgeon Moderate constipation noted on CT we'll treat with bowel regimen patient will follow up with her MOLDING SANDER this week Findings, need for follow-up and strict return instructions discussed with patient.
[2018-09-06] MEDS ORDERED: morphine SULFATE 4 MG/ML VIAL ONE (13:25)
== END 2018-09-06 15:30 | disposition home or self-care (01) ==
LOC: JER 10:55
PROC: BH49ZZZ Ultrasonography of Abdominal Wall (ICD-10-PCS; principal; 2018-09-06)
DX: K59.00 Constipation, unspecified (principal); R10.31 Right lower quadrant pain; Z98.890 Other specified postprocedural states
CPT/HCPCS: 36415; 74177-TC; 76705-TC; 80053; 85025; 93308; 99283-25

== ENCOUNTER 2019-05-18 22:46 | Emergency (ER) | payer OTHER ==
[2019-05-18 23:18] VITALS: BMI 30.2
--- NOTE | 2019-05-18 23:37 | PDOC ---
History of Present Illness - General Chief Complaint: Pain Stated Complaint: ABD PAIN Time Seen by Provider: 05/18/19 23:35 - History of Present Illness Initial Comments: 05/18/19 23:38 38 year old female, with a significant past medical history of asthma, osteomas , GERD, recent sinus surgery, h/o TLH in 2014 and h/o R ovarian torsion in 2018 and oophorectomy, and left oophorectomy 3 days ago (secondary to cyst-related pain) who presents with LLQ abdominal pain that is pressure like and ongoing for several weeks. She was seen at [facility] one day ago 05/19/19 01:57 Past History - Past Medical History Allergies/Adverse Reactions: Allergies Allergy/AdvReac Type Severity Reaction Status Date / Time aspirin Allergy Mild Hives Verified 05/18/19 23:18 Home Medications: Ambulatory Orders Albuterol Sulfate Inhaler - [Ventolin Hfa Inhaler -] 1 - 2 inh PO QID 05/06/18 Cyclobenzaprine HCl [Flexeril 10 mg] 10 mg PO DAILY PRN 05/06/18 Diclofenac Sodium 75 mg PO DAILY 05/06/18 Omeprazole 20 mg PO DAILY 05/06/18 Fluconazole 150 mg PO ASDIR #3 tablet 08/31/18 Acetaminophen W/ Codeine #3 [Tylenol # 3 -] 1 tab PO Q4H PRN #20 tablet MDD 6 Cephalexin Monohydrate [Keflex -] 500 mg PO BID #14 capsule 09/04/18 Valacyclovir HCl [Valtrex -] 1,000 mg PO DAILY #30 tablet 09/04/18 Docusate Liquid [Colace Liquid -] 100 mg PO TID #473 ml 09/06/18 Polyethylene Glycol 3350 [Miralax (For Bowel Prep) -] 17 gm PO DAILY #7 bottle 09/06/18 Anemia: No Asthma: Yes Cancer: No (SEEING ONCOLOGY FOR + CANCER GENE) Cardiac Disorders: No CVA: No COPD: No CHF: No Dementia: No Diabetes: No GI Disorders: Yes (ACID REFLUX,HIATAL HERNIA) Disorders: No HTN: No Hypercholesterolemia: No Liver Disease: No Psychiatric Problems: Yes (PTSD) Seizures: No Thyroid Disease: No - Surgical History Abdominal Surgery: Yes (abdominoplasty 1997, apr 2018 right ovarian cystectomy) Appendectomy: No Cardiac Surgery: No Cholecystectomy: No Lung Surgery: No Neurologic Surgery: No Orthopedic Surgery: Yes (ARTHROSCOPY RIGHT KNEE) - Immunization History Immunization Up to Date: Yes - Psycho Social/Smoking Cessation Hx Smoking History: Never smoked Have you smoked in the past 12 months: No Number of Cigarettes Smoked Daily: 2 Cigars Per Day: 0 Information on smoking cessation initiated: No 'Breaking Loose' booklet given: 05/06/18 Hx Alcohol Use: No Drug/Substance Use Hx: No Substance Use Type: None Hx Substance Use Treatment: No *Physical Exam - Vital Signs Last Vital Signs Temp Pulse Resp BP Pulse Ox 98.3 F 65 18 128/97 100 05/18/19 23:14 05/18/19 23:14 05/18/19 23:14 05/18/19 23:14 05/18/19 23:14 ED Treatment Course - LABORATORY CBC & Chemistry Diagram: 05/19/19 01:45 05/19/19 01:45 Discharge - Discharge Information Problems reviewed: Yes Clinical Impression/Diagnosis: Abdominal pain Condition: Stable Disposition: HOME - Admission No - Follow up/Referral Referrals: ON STAFF,NOT [Primary Care Provider] - - Patient Discharge Instructions Patient Printed Discharge Instructions: DI for Abdominal Pain-Adult Additional Instructions: You were seen in the ER for abdominal pain Your labwork and imaging were unremarkable. You should take Tylenol and Motrin for your pain. Follow up with your Family Doctor and your OBGYN Return to the ER if you experience worsening abdominal pain, nausea, vomiting, fever or any other concerning symptoms. - Post Discharge Activity
--- NOTE | 2019-05-19 00:01 | PDOC ---
Attending Attestation - Resident Resident Name: Yohana Bran - ED Attending Attestation I have performed the following: I have examined & evaluated the patient, The case was reviewed & discussed with the resident, I agree w/resident's findings & plan - HPI HPI: 05/19/19 03:46 see resident hpi - Physicial Exam PE: 05/19/19 03:46 agree with resident exam - Medical Decision Making 05/19/19 03:46 38-year-old female with persistent postoperative pain since September status post laparoscopic [employer]CIAL ASSISTANT procedure with history of bilateral oophorectomy as well as hysterectomy CT abdomen out side facility showed possible left-sided abscess versus cystic structure Patient left that facility and came here for reevaluation Repeat CT scan showed no acute abnormality Patient is nontoxic-appearing, afebrile with no elevated white blood cell count 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
[2019-05-19 02:15] LABS: BASO % 0.7 % (0-2.0); EOS % 2.3 % (0-4.5); HEMATOCRIT 40.7 % (32.4-45.2); HEMOGLOBIN 13.4 GM/dL (10.7-15.3); LYMPH % 40.7 % (8-40); MCH 30.2 pg (25.7-33.7); MCHC 32.9 g/dl (32.0-36.0); MEAN CELL VOLUME 91.9 fl (80-96); MEAN PLT VOLUME 9.1 fl (7.5-11.1); MONO % 7.1 % (3.8-10.2); NEUT % 49.2 % (42.8-82.8); PLATELET COUNT 254 K/MM3 (134-434); RBC 4.43 M/mm3 (3.60-5.2); RDW 13.9 % (11.6-15.6); WHITE BLOOD COUNT 7.6 K/mm3 (4.0-10.0)
[2019-05-19 02:22] VITALS: BP 139/95; PULSE 63; TEMP 98.2
[2019-05-19 02:24] LABS: INR 0.9 (0.83-1.09); PROTHROMBIN TIME (PATIENT) 10.6 SEC (9.7-13.0)
[2019-05-19 03:29] LABS: ALBUMIN 3.7 g/dl (3.4-5.0); BILIRUBIN,TOTAL 0.1 mg/dL (0.2-1); CALCIUM 9.3 mg/dL (8.5-10.1); CREATININE 0.9 mg/dL (0.55-1.3); POTASSIUM 4.1 mmol/L (3.5-5.1); TOT PROT 6.7 g/dl (6.4-8.2)
--- NOTE | 2019-05-19 11:50 | EKG ---
Test Reason : Blood Pressure : / mmHG Vent. Rate : 058 BPM Atrial Rate : 058 BPM P-R Int : 160 ms QRS Dur : 094 ms QT Int : 438 ms P-R-T Axes : 036 063 054 degrees QTc Int : 429 ms SINUS BRADYCARDIA EARLY REPOLARIZATION OTHERWISE NORMAL ECG WHEN COMPARED WITH ECG OF 03-SEP-2018 12:33, NO SIGNIFICANT CHANGE WAS FOUND Confirmed by SILVA PARNELL MD ([id number]) on 05/19/2019 11:49:47 AM Referred By: Confirmed By:SILVA PARNELL MD
[2019-05-20 00:03] LABS: LIPASE 254 U/L (73-393)
== END 2019-05-19 04:22 | disposition home or self-care (01) ==
LOC: JER 22:46
DX: G89.18 Other acute postprocedural pain (principal); R10.32 Left lower quadrant pain; Z88.6 Allergy status to analgesic agent; Z90.722 Acquired absence of ovaries, bilateral; K21.9 Gastro-esophageal reflux disease without esophagitis; J45.909 Unspecified asthma, uncomplicated
CPT/HCPCS: 36415; 74177-TC; 80053; 83690; 84484; 85025; 85610; 85730; 86850; 86900; 86901; 93005; 93010; 99284-25